=== PATIENT | male | born 1945 | race Caucasian/White ===

== ENCOUNTER 2020-11-02 11:28 | Emergency (ER) | payer MEDICARE, OTHER ==
[2020-11-02 11:41] VITALS: TEMP 98.5
--- NOTE | 2020-11-02 11:57 | ED ---
URI HPI - General Chief Complaint: Upper Respiratory Infection Stated Complaint: COVID+ Time Seen by Provider: 11/02/20 11:48 Source: patient, RN notes reviewed Mode of arrival: ambulatory Limitations: no limitations - History of Present Illness Initial Comments: Patient is a 75-year-old male that presents to emergency department complaining of testing positive for Covid on 10/29/2020. He notes he had symptoms one longer. He notes that he presents to emergency room to get to the bridge and around IV monoclonal antibody therapy. He denied any serious issues. He did have a cough on the exam. He denied any other issues. He was a well-appearing 75-year-old male. He denied chest pain headache nausea vomiting diarrhea constipation fever fatigue chills. - Related Data Allergies Allergy/AdvReac Type Severity Reaction Status Date / Time No Known Allergies Allergy Verified 11/02/20 11:35 Review of Systems ROS Statement: Those systems with pertinent positive or pertinent negative responses have been documented in the HPI. ROS Other: All systems not noted in ROS Statement are negative. Past Medical History Past Medical History: Hypertension Additional Past Medical History / Comment(s): arthritis, sinuses History of Any Multi-Drug Resistant Organisms: None Reported Past Surgical History: Appendectomy, Cholecystectomy, Joint Replacement Additional Past Surgical History / Comment(s): B knee hemorrhoid, sinus surrgery Past Psychological History: No Psychological Hx Reported Smoking Status: Never smoker Past Alcohol Use History: None Reported Past Drug Use History: None Reported General Exam Limitations: no limitations General appearance: alert, in no apparent distress Head exam: Present: atraumatic, normocephalic, normal inspection Eye exam: Present: normal appearance, PERRL, EOMI. Absent: scleral icterus, conjunctival injection, periorbital swelling ENT exam: Present: normal exam, mucous membranes moist Neck exam: Present: normal inspection Respiratory exam: Present: normal lung sounds bilaterally. Absent: respiratory distress, wheezes, rales, rhonchi, stridor Cardiovascular Exam: Present: regular rate, normal rhythm, normal heart sounds. Absent: systolic murmur, diastolic murmur, rubs, gallop, clicks GI/Abdominal exam: Present: soft, normal bowel sounds. Absent: distended, tenderness, guarding, rebound, rigid Extremities exam: Present: normal inspection, full ROM, normal capillary refill. Absent: tenderness, pedal edema, joint swelling, calf tenderness Neurological exam: Present: alert, oriented X3 Psychiatric exam: Present: normal affect, normal mood Skin exam: Present: warm, dry, intact, normal color. Absent: rash Course Vital Signs 11/02/20 11:37 Temperature 98.5 F Pulse Rate 92 Respiratory 18 Rate Blood Pressure 134/89 O2 Sat by Pulse 90 L Oximetry Medical Decision Making - Medical Decision Making 75-year-old male Covid positive times one week. Presents emergency room for her general on. Patient does meet criteria. Patient can discharge home after IV infusion. Case discussed with Dr. Nuñez, patient can discharge home in stable condition. - Radiology Data Radiology results: report reviewed, image reviewed Chest x-ray: Vague infiltrates or suggested within the periphery of both lung mcknight suspicious for developing pneumonia. Disposition Clinical Impression: COVID Disposition: HOME SELF-CARE Condition: Stable Instructions (If sedation given, give patient instructions): Coronavirus Disease 2019 (COVID-19) Additional Instructions: Please return to the Emergency Department if symptoms worsen or any other concerns. Follow-up with primary care 1-2 days. Continue to quarantine per CDC guidelines. Is patient prescribed a controlled substance at d/c from ED?: No Referrals: Kathie Guajardo MD [Primary Care Provider] - 1-2 days Time of Disposition: 12:50
[2020-11-02] MEDS ORDERED: CASIRIVIMAB/IMDEVIMAB (EUA) 1,200 MG in SODIUM CHLORIDE 0.9% 100 ML IVPB ONE (12:30)
--- NOTE | 2020-11-02 12:36 | XR ---
EXAMINATION TYPE: XR chest 2V DATE OF EXAM: 11/02/2020 COMPARISON: NONE HISTORY: Shortness of breath TECHNIQUE: Frontal and lateral views of the chest are obtained. FINDINGS: Scattered senescent parenchymal changes noted. Hyperinflation compatible with COPD. Vague infiltrates are suggested within the periphery of both lung mcknight suspicious for developing pn eumonia. Correlate clinically. Heart size is stable. Mediastinal structures are stable and grossly unremarkable. No evidence for hilar prominence. Degenerative changes dorsal spine. IMPRESSION: 1. Vague infiltrates are suggested within the periphery of both lung mcknight suspicious for developing pneumonia. Correlate clinically.
[2020-11-02] MEDS ORDERED: SODIUM CHLORIDE 0.9% 50 ML IVPB ONE (13:00)
[2020-11-02] MEDS ORDERED: METOCLOPRAMIDE 5 MG/ML 2 ML VIAL IVP STA (13:16)
[2020-11-02 13:28] VITALS: BP 138/86; RESP 16
[2020-11-02 14:18] VITALS: PULSE 74
== END 2020-11-02 14:17 | disposition home or self-care (01) ==
LOC: EC 11:28
DX: U07.1 COVID-19 (principal); I10 Essential (primary) hypertension
CPT/HCPCS: 71046; 99283; 96365; 96375; J2765; Q0243

== ENCOUNTER 2020-11-04 11:38 | Inpatient (IN) | payer MEDICARE, OTHER ==
[2020-11-04] MEDS ORDERED: SODIUM CHLORIDE 0.9% 500 ML 500 ML IV STA (11:57)
--- NOTE | 2020-11-04 11:57 | ED ---
General Adult HPI - General Chief complaint: Shortness of Breath Stated complaint: COVID Time Seen by Provider: 11/04/20 11:48 Source: patient, RN notes reviewed, old records reviewed Mode of arrival: ambulatory Limitations: no limitations - History of Present Illness Initial comments: This is a well-appearing 75-year-old male, alert and oriented 4, presents to the emergency room with worsening shortness of breath. He is not vaccinated against COVID-19. He was diagnosed with Covid on Thursday states that his symptoms started on Thursday last week. He states that he was given the monoclonal antibodies in the ER on Thursday. His primary care doctor put him on a Z-Bryn and prednisone which she finished. He states that he has been increasing shortness of breath with any type of exertion. His oxygen saturations have been in the 80s at home. He was using a concentrator that he borrowed from his neighbor to help with oxygenation with no relief. He denies any fevers. He does complain of nausea but no vomiting or diarrhea. -: days(s) (6) Associated Symptoms: nausea/vomiting, shortness of breath Treatments Prior to Arrival: other (Z-Bryn and prednisone this week) - Related Data Home Medications Medication Instructions Recorded Confirmed Albuterol Nebulized [Ventolin 2.5 mg INHALATION RT-QID PRN 11/04/20 11/04/20 Nebulized] Ascorbic Acid [Vitamin C] 500 mg PO BID 11/04/20 11/04/20 Calcium 200mg 200 mg PO BID 11/04/20 11/04/20 Cholecalciferol (Vitamin D3) 125 mcg PO BID 11/04/20 11/04/20 [Vitamin D3 (125 MCG = 5,000 IU)] Cyanocobalamin (Vitamin B-12) 2,500 mcg PO MO 11/04/20 11/04/20 [Vitamin B-12] Folic Acid 1 mg PO DAILY 11/04/20 11/04/20 HYDROcodone/APAP 10-325MG [[place] 1 tab PO DAILY PRN 11/04/20 11/04/20 10-325] Hydroxychloroquine Sulfate 200 mg PO BID 11/04/20 11/04/20 [Plaquenil] Ibuprofen [Motrin] 800 mg PO BID PRN 11/04/20 11/04/20 Loratadine-Pseudoeph 5-120 mg 1 tab PO Q12HR PRN 11/04/20 11/04/20 [Claritin-D 12 Hour] Magnesium Oxide [Crowe] 500 mg PO DAILY 11/04/20 11/04/20 Multivitamins, Thera [Multivitamin 1 tab PO DAILY 11/04/20 11/04/20 (formulary)] Telmisartan [Micardis] 40 mg PO HS 11/04/20 11/04/20 Turmeric 100mg 100 mg PO BID 11/04/20 11/04/20 Zinc 50 mg PO DAILY 11/04/20 11/04/20 ondansetron HCL [Zofran] 8 mg PO Q8HR PRN 11/04/20 11/04/20 Allergies Allergy/AdvReac Type Severity Reaction Status Date / Time No Known Allergies Allergy Verified 11/04/20 14:07 Review of Systems ROS Statement: Those systems with pertinent positive or pertinent negative responses have been documented in the HPI. ROS Other: All systems not noted in ROS Statement are negative. Past Medical History Past Medical History: Hypertension Additional Past Medical History / Comment(s): arthritis, sinuses History of Any Multi-Drug Resistant Organisms: None Reported Past Surgical History: Appendectomy, Cholecystectomy, Joint Replacement Additional Past Surgical History / Comment(s): B knee hemorrhoid, sinus surrgery Past Psychological History: No Psychological Hx Reported Smoking Status: Never smoker Past Alcohol Use History: None Reported Past Drug Use History: None Reported General Exam Limitations: no limitations General appearance: alert, in no apparent distress Head exam: Present: atraumatic, normocephalic, normal inspection Eye exam: Present: normal appearance, PERRL, EOMI. Absent: scleral icterus, conjunctival injection, periorbital swelling ENT exam: Present: normal exam, normal oropharynx, mucous membranes moist Neck exam: Present: normal inspection, full ROM. Absent: tenderness, meningismus, lymphadenopathy Respiratory exam: Present: rales (Bilateral bases) Cardiovascular Exam: Present: regular rate, normal rhythm, normal heart sounds. Absent: systolic murmur, diastolic murmur, rubs, gallop, clicks GI/Abdominal exam: Present: soft, normal bowel sounds. Absent: distended, tenderness, guarding, rebound, rigid Extremities exam: Present: normal inspection, full ROM, normal capillary refill. Absent: tenderness, pedal edema, joint swelling, calf tenderness Back exam: Absent: tenderness, CVA tenderness (R), CVA tenderness (L) Neurological exam: Present: alert, oriented X3 Psychiatric exam: Present: normal affect, normal mood Skin exam: Present: warm, dry, intact, normal color. Absent: rash, cyanosis, diaphoretic, petechiae, pallor Course Vital Signs 11/04/20 11/04/20 11/04/20 11:40 13:47 13:49 Temperature 97.9 F Pulse Rate 74 Respiratory 18 Rate Blood Pressure 142/85 O2 Sat by Pulse 98 81 L 93 L Oximetry 11/04/20 11/04/20 11/04/20 13:52 14:06 14:30 Temperature 98.8 F Pulse Rate 77 78 73 Respiratory 18 18 18 Rate Blood Pressure 138/80 135/82 O2 Sat by Pulse 86 L 89 L 91 L Oximetry Medical Decision Making - Medical Decision Making Mild interval worsening with scattered small ill-defined consolidative opacities in both mid and lower lung zones consistent with inflammatory process. His white blood cell count is 5.6. Troponin is negative at 0.012 with EKG showing normal sinus rhythm with no ST elevation. Patient remains hypoxic at 81% on room air. He was returned to the non- rebreather at 12 L to maintain sats above 95%. He will be admitted to the hospital continue him on oxygen therapy - Lab Data Result diagrams: 11/04/20 12:25 11/04/20 12:25 Lab Results 11/04/20 11/04/20 11/04/20 Range/Units 12:25 12:25 12:25 WBC 5.6 (3.8-10.6) k/uL RBC 4.78 (4.30-5.90) m/uL Hgb 15.4 (13.0-17.5) gm/dL Hct 44.2 (39.0-53.0) % MCV 92.4 (80.0-100.0) fL MCH 32.1 (25.0-35.0) pg MCHC 34.8 (31.0-37.0) g/dL RDW 13.1 (11.5-15.5) % Plt Count 236 (150-450) k/uL MPV 7.6 Neutrophils % 85 % Lymphocytes % 9 % Monocytes % 4 % Eosinophils % 1 % Basophils % 0 % Neutrophils # 4.8 (1.3-7.7) k/uL Lymphocytes # 0.5 L (1.0-4.8) k/uL Monocytes # 0.2 (0-1.0) k/uL Eosinophils # 0.0 (0-0.7) k/uL Basophils # 0.0 (0-0.2) k/uL PT 9.7 (9.0-12.0) sec INR 0.9 (<1.2) APTT 22.5 (22.0-30.0) sec Sodium 136 L (137-145) mmol/L Potassium 4.9 (3.5-5.1) mmol/L Chloride 99 (98-107) mmol/L Carbon Dioxide 29 (22-30) mmol/L Anion Gap 8 mmol/L BUN 20 (9-20) mg/dL Creatinine 0.58 L (0.66-1.25) mg/dL Est GFR (CKD-EPI)AfAm >90 (>60 ml/min/1.73 sqM) Est GFR (CKD-EPI)NonAf >90 (>60 ml/min/1.73 sqM) Glucose 124 H (74-99) mg/dL Plasma Lactic Acid Teofilo (0.7-2.0) mmol/L Calcium 8.8 (8.4-10.2) mg/dL Magnesium 2.1 (1.6-2.3) mg/dL Total Bilirubin 0.6 (0.2-1.3) mg/dL AST 40 (17-59) U/L ALT 21 (4-49) U/L Alkaline Phosphatase 68 (38-126) U/L Troponin I (0.000-0.034) ng/mL Total Protein 6.6 (6.3-8.2) g/dL Albumin 3.3 L (3.5-5.0) g/dL 11/04/20 11/04/20 Range/Units 12:25 12:25 WBC (3.8-10.6) k/uL RBC (4.30-5.90) m/uL Hgb (13.0-17.5) gm/dL Hct (39.0-53.0) % MCV (80.0-100.0) fL MCH (25.0-35.0) pg MCHC (31.0-37.0) g/dL RDW (11.5-15.5) % Plt Count (150-450) k/uL MPV Neutrophils % % Lymphocytes % % Monocytes % % Eosinophils % % Basophils % % Neutrophils # (1.3-7.7) k/uL Lymphocytes # (1.0-4.8) k/uL Monocytes # (0-1.0) k/uL Eosinophils # (0-0.7) k/uL Basophils # (0-0.2) k/uL PT (9.0-12.0) sec INR (<1.2) APTT (22.0-30.0) sec Sodium (137-145) mmol/L Potassium (3.5-5.1) mmol/L Chloride (98-107) mmol/L Carbon Dioxide (22-30) mmol/L Anion Gap mmol/L BUN (9-20) mg/dL Creatinine (0.66-1.25) mg/dL Est GFR (CKD-EPI)AfAm (>60 ml/min/1.73 sqM) Est GFR (CKD-EPI)NonAf (>60 ml/min/1.73 sqM) Glucose (74-99) mg/dL Plasma Lactic Acid Teofilo 1.3 (0.7-2.0) mmol/L Calcium (8.4-10.2) mg/dL Magnesium (1.6-2.3) mg/dL Total Bilirubin (0.2-1.3) mg/dL AST (17-59) U/L ALT (4-49) U/L Alkaline Phosphatase (38-126) U/L Troponin I <0.012 (0.000-0.034) ng/mL Total Protein (6.3-8.2) g/dL Albumin (3.5-5.0) g/dL Disposition Clinical Impression: COVID-19, Hypoxia Clinical Impression: (Ruled Out): COVID toes Disposition: ADMITTED IP TO THIS [facility] Condition: Fair Decision Date: 11/04/20 Decision Time: 13:54
[2020-11-04 12:31] LABS: Basophils % (A) 0 %; Eosinophils % (A) 1 %; HCT 44.2 % (39.0-53.0); HGB 15.4 gm/dL (13.0-17.5); Lymphocytes # (A) 0.5 k/uL (1.0-4.8); Lymphocytes % (A) 9 %; MCH 32.1 pg (25.0-35.0); MCHC 34.8 g/dL (31.0-37.0); MCV 92.4 fL (80.0-100.0); Mean Platelet Volume 7.6; Monocytes # (A) 0.2 k/uL (0-1.0); Monocytes % (A) 4 %; Neutrophils # (A) 4.8 k/uL (1.3-7.7); Neutrophils % (A) 85 %; Platelet Count 236 k/uL (150-450); RBC 4.78 m/uL (4.30-5.90); RDW 13.1 % (11.5-15.5); WBC 5.6 k/uL (3.8-10.6)
[2020-11-04 12:41] LABS: INR 0.9 (<1.2); Partial Thromboplastin Time 22.5 sec (22.0-30.0); Prothrombin Time 9.7 sec (9.0-12.0)
[2020-11-04 12:43] LABS: ALT 21 U/L (4-49); AST 40 U/L (17-59); African American GFR (CKD) >90 (>60 ml/min/1.73 sqM); Albumin 3.3 g/dL (3.5-5.0); Alkaline Phosphatase 68 U/L (38-126); Anion Gap 8 mmol/L; Blood Urea Nitrogen 20 mg/dL (9-20); Calcium 8.8 mg/dL (8.4-10.2); Carbon Dioxide 29 mmol/L (22-30); Chloride 99 mmol/L (98-107); Glucose 124 mg/dL (74-99); Magnesium 2.1 mg/dL (1.6-2.3); Non-African American GFR(CKD) >90 (>60 ml/min/1.73 sqM); Potassium 4.9 mmol/L (3.5-5.1); Sodium 136 mmol/L (137-145); Total Bilirubin 0.6 mg/dL (0.2-1.3); Total Protein 6.6 g/dL (6.3-8.2)
--- NOTE | 2020-11-04 13:15 | XR ---
EXAMINATION TYPE: XR chest 2V DATE OF EXAM: 11/04/2020 COMPARISON: 11/02/2020 HISTORY: Covid TECHNIQUE: Frontal and lateral views of the chest are obtained. FINDINGS: There are scattered small ill-defined partially consolidative opacities in the peripheral aspects of both mid and lower lung zones suspicious for an acute inflammatory process. There has been mild interval progression since the prior study. There is no pneumothorax or pleural effusion. The heart and pulmonary vasculature are normal. The osseous structures are intact IMPRESSION: Mild interval worsening in the scattered multifocal partial airspace opacities consisten t with acute parenchymal disease
[2020-11-04] MEDS ORDERED: METOCLOPRAMIDE 5 MG/ML 2 ML VIAL IVP STA (13:46)
[2020-11-04] MEDS ORDERED: DEXAMETHASONE SOD PHOSPHATE 10 MG/ML 1 ML VIAL IV STA (13:52)
[2020-11-04] MEDS ORDERED: NALOXONE 0.4 MG/ML 1 ML VIAL IV PRN ×2 (14:02→14:35)
[2020-11-04] MEDS ORDERED: ACETAMINOPHEN TAB 325 MG TAB PO PRN (14:02)
[2020-11-04] MEDS ORDERED: IBUPROFEN 400 MG TAB PO PRN (14:02)
[2020-11-04] MEDS ORDERED: oxyCODONE-APAP 5-325MG 1 EACH TAB PO PRN (14:35)
--- NOTE | 2020-11-04 14:35 | P.HPIM ---
History of Present Illness H&P Date: 11/04/20 Chief Complaint: covid 75 year old man with history of RA on HCQ presented with dyspnea. Pt started having symptoms on 10/29 and was dx with Covid on 10/31, then received monoclonal antibody on 11/02. However, patient continued to have symptoms at home, with increasing dyspnea on exertion. He borrowed his friend's oxygen concentrator and attempt to keep his oxygen saturation up, however he desaturated to the low 80s at home prompting his visit to the emergency room for further evaluation. Patient denies nausea, vomiting, abdominal pain, dysuria, dyschezia, numbness/we akness. In the emergency room, patient is on 6 L nasal cannula and saturating 89%. CBC and chemistries and LFTs were reviewed and unremarkable. Chest x-ray shows interval worsening of the scattered multifocal partial airspace opacities. EKG shows normal sinus rhythm. Review of Systems All Systems reviewed and pertinent positives and negatives noted in HPI, all other symptoms are negative Past Medical History Past Medical History: Hypertension Additional Past Medical History / Comment(s): arthritis, sinuses History of Any Multi-Drug Resistant Organisms: None Reported Past Surgical History: Appendectomy, Cholecystectomy, Joint Replacement Additional Past Surgical History / Comment(s): B knee hemorrhoid, sinus surrgery Past Psychological History: No Psychological Hx Reported Smoking Status: Never smoker Past Alcohol Use History: None Reported Past Drug Use History: None Reported Medications and Allergies Home Medications Medication Instructions Recorded Confirmed Type Albuterol Nebulized [Ventolin 2.5 mg INHALATION RT-QID PRN 11/04/20 11/04/20 History Nebulized] Ascorbic Acid [Vitamin C] 500 mg PO BID 11/04/20 11/04/20 History Calcium 200mg 200 mg PO BID 11/04/20 11/04/20 History Cholecalciferol (Vitamin D3) 125 mcg PO BID 11/04/20 11/04/20 History [Vitamin D3 (125 MCG = 5,000 IU)] Cyanocobalamin (Vitamin B-12) 2,500 mcg PO MO 11/04/20 11/04/20 History [Vitamin B-12] HYDROcodone/APAP 10-325MG [[place] 1 tab PO DAILY PRN 11/04/20 11/04/20 History 10-325] Hydroxychloroquine Sulfate 200 mg PO BID 11/04/20 11/04/20 History [Plaquenil] Ibuprofen [Motrin] 800 mg PO BID PRN 11/04/20 11/04/20 History Loratadine-Pseudoeph 5-120 mg 1 tab PO Q12HR PRN 11/04/20 11/04/20 History [Claritin-D 12 Hour] Magnesium Oxide [Crowe] 500 mg PO DAILY 11/04/20 11/04/20 History Multivitamins, Thera [Multivitamin 1 tab PO DAILY 11/04/20 11/04/20 History (formulary)] RX: Folic Acid 1 mg PO DAILY 11/04/20 11/04/20 History RX: Zinc 50 mg PO DAILY 11/04/20 11/04/20 History Telmisartan [Micardis] 40 mg PO HS 11/04/20 11/04/20 History Turmeric 100mg 100 mg PO BID 11/04/20 11/04/20 History ondansetron HCL [Zofran] 8 mg PO Q8HR PRN 11/04/20 11/04/20 History Allergies Allergy/AdvReac Type Severity Reaction Status Date / Time No Known Allergies Allergy Verified 11/04/20 14:07 Physical Exam Osteopathic Statement: *. No significant issues noted on an osteopathic structural exam other than those noted in the History and Physical/Consult. Vitals: Vital Signs Temp Pulse Resp BP Pulse Ox 11/04/20 14:06 78 18 89 L 11/04/20 13:52 98.8 F 77 18 138/80 86 L 11/04/20 13:49 93 L 11/04/20 13:47 81 L 11/04/20 11:40 97.9 F 74 18 142/85 98 Intake and Output 11/03/20 11/04/20 11/04/20 22:59 06:59 14:59 Other: Weight 104.326 kg Gen: awake, alert HEENT: normocephalic, atraumatic, good hearing acuity, moist mucous membranes Resp: good air exchange, breathing comfortably with no accessory muscle use CVS: good distal perfusion x 4, GI: soft, NTTP, ND : no SPT, no CVAT, varghese catheter not present MSK: no pitting edema, no clubbing Neuro: non-focal, moving all extremities Psych: cooperative, euthymic mood Results CBC & Chem 7: 11/04/20 12:25 11/04/20 12:25 Labs: Abnormal Lab Results - Last 24 Hours (Table) 11/04/20 11/04/20 Range/Units 12:25 12:25 Lymphocytes # 0.5 L (1.0-4.8) k/uL Sodium 136 L (137-145) mmol/L Creatinine 0.58 L (0.66-1.25) mg/dL Glucose 124 H (74-99) mg/dL Albumin 3.3 L (3.5-5.0) g/dL Assessment and Plan Assessment: Acute hypoxemic respiratory failure ARDS secondary to Covid 19 -Admit to inpatient, telemetry -Pulmonary consult -Vitamin C/D, zinc, famotidine -Dexamethasone 6 mg IV daily -Inside the window for Remdesivir, however, patient refuses -Not a candidate for IL-6 therapy given recent monoclonal antibody injection -Oxygen when necessary Rheumatoid arthritis -Hold home hydroxy chloroquine Patient is a full code DVT prophylaxis with enoxaparin daily
[2020-11-04] MEDS: ALBUTEROL HFA INHALER INHALATION PRN ×2 (15:07→21:20)
[2020-11-04 16:16] LABS: C Reactive Protein 8.5 mg/dL (<1.0)
[2020-11-04] MEDS: CALCIUM CARB-VIT D 500 MG-5 MCG TAB PO SCH (21:16)
[2020-11-04] MEDS: LOSARTAN 50 MG TAB PO SCH (21:16)
[2020-11-04] MEDS: CHOLECALCIFEROL 25 MCG (1000 IU) TABLET PO SCH (21:16)
[2020-11-04] MEDS: ASCORBIC ACID 500 MG TAB PO SCH (21:17)
[2020-11-04] MEDS: FAMOTIDINE 20 MG TAB PO SCH (21:17)
[2020-11-04] MEDS: MELATONIN 5 MG TABLET PO SCH (21:59)
[2020-11-05] MEDS: CHOLECALCIFEROL 25 MCG (1000 IU) TABLET PO SCH ×2 (07:51→21:14)
[2020-11-05] MEDS: DEXAMETHASONE SOD PHOSPHATE 10 MG/ML 1 ML VIAL IV SCH (07:51)
[2020-11-05] MEDS: ENOXAPARIN 40 MG/0.4 ML SYRINGE SQ SCH (07:51)
[2020-11-05] MEDS: ASCORBIC ACID 500 MG TAB PO SCH ×2 (07:52→21:15)
[2020-11-05] MEDS: FOLIC ACID 1 MG TAB PO SCH (07:52)
[2020-11-05] MEDS: FAMOTIDINE 20 MG TAB PO SCH ×2 (07:52→21:14)
[2020-11-05] MEDS: ZINC SULFATE 220 MG CAP PO SCH (07:52)
[2020-11-05] MEDS: CALCIUM CARB-VIT D 500 MG-5 MCG TAB PO SCH ×2 (07:52→21:15)
[2020-11-05] MEDS: ALBUTEROL HFA INHALER INHALATION PRN ×2 (08:59→12:20)
[2020-11-05 11:43] LABS: Basophils # (A) 0.01 X 10*3/uL (0.00-0.10); Basophils % (A) 0.2 %; Eosinophils # (A) 0 X 10*3/uL (0.04-0.35); Eosinophils % (A) 0 %; HCT 43.9 % (39.6-50.0); Lymphocytes # (A) 0.49 X 10*3/uL (0.90-5.00); Lymphocytes % (A) 9.1 %; MCH 31.7 pg (27.0-32.0); MCHC 34.2 g/dL (32.0-37.0); MCV 92.8 fL (80.0-97.0); Mean Platelet Volume 9.2 fL (9.5-12.2); Monocytes # (A) 0.34 X 10*3/uL (0.20-1.00); Monocytes % (A) 6.3 %; Neutrophils # (A) 4.54 X 10*3/uL (1.80-7.70); Neutrophils % (A) 83.8 %; Platelet Count 254 X 10*3/uL (140-440); RBC 4.73 X 10*6/uL (4.40-5.60); RDW 12.4 % (11.5-14.5); WBC 5.41 X 10*3/uL (4.50-10.00)
[2020-11-05 11:49] LABS: Ferritin 731.7 ng/mL (22.0-322.0)
[2020-11-05 11:50] LABS: African American GFR (CKD) 108.5 (60.0-200.0); Albumin 3.6 g/dL (3.80-4.90); Albumin/Globulin Ratio 1.33 (1.60-3.17); Anion Gap 13.7 mmol/L (4.00-12.00); BUN/Creat Ratio 25.71 Ratio (12.00-20.00); Calcium 8.9 mg/dL (8.7-10.3); Carbon Dioxide 23.3 mmol/L (21.6-31.8); Globulin 2.7 g/dL (1.6-3.3); Non-African American GFR(CKD) 93.6 (60.0-200.0); Potassium 4.9 mmol/L (3.5-5.5); Total Bilirubin 0.6 mg/dL (0.2-1.2); Total Protein 6.3 g/dL (6.2-8.2)
--- NOTE | 2020-11-05 13:22 | P.PN ---
Subjective Progress Note Date: 11/05/20 No acute events. Still with cough, dyspnea on exertion. 6L NC oxygen requirement. Objective - Vital Signs Vital signs: Vital Signs Temp 97.7 F 11/05/20 10:00 Pulse 73 11/05/20 10:00 Resp 18 11/05/20 10:00 BP 126/70 11/05/20 10:00 Pulse Ox 94 L 11/05/20 10:00 Intake & Output 11/04/20 11/05/20 11/05/20 18:59 06:59 18:59 Intake Total 240 Output Total 600 Balance -600 240 Weight 104.326 kg 104.326 kg Intake: Oral 240 Output: Urine 600 Other: Voiding Method Toilet Toilet Urinal Urinal # Voids 3 # Bowel Movements 0 - Exam Gen: awake, alert HEENT: normocephalic, atraumatic, good hearing acuity, moist mucous membranes Resp: good air exchange, breathing comfortably with no accessory muscle use CVS: good distal perfusion x 4, GI: soft, NTTP, ND : no SPT, no CVAT, varghese catheter not present MSK: no pitting edema, no clubbing Neuro: non-focal, moving all extremities Psych: cooperative, euthymic mood - Labs CBC & Chem 7: 11/05/20 07:18 11/05/20 07:18 Labs: Abnormal Lab Results - Last 24 Hours (Table) 11/04/20 11/04/20 11/05/20 Range/Units 15:16 15:16 07:18 MPV 9.2 L (9.5-12.2) fL Lymphocytes # 0.49 L (0.90-5.00) X 10*3/uL Eosinophils # 0 L (0.04-0.35) X 10*3/uL D-Dimer 0.77 H (<0.60) mg/L FEU Anion Gap (4.00-12.00) mmol/L BUN/Creatinine Ratio (12.00-20.00) Ratio Glucose (70-110) mg/dL Ferritin 690.0 H (22.0-322.0) ng/mL Lactate Dehydrogenase (120-246) U/L C-Reactive Protein 8.5 H (<1.0) mg/dL Albumin (3.80-4.90) g/dL Albumin/Globulin Ratio (1.60-3.17) g/dL 11/05/20 11/05/20 Range/Units 07:18 07:18 MPV (9.5-12.2) fL Lymphocytes # (0.90-5.00) X 10*3/uL Eosinophils # (0.04-0.35) X 10*3/uL D-Dimer 1.01 H (<0.60) mg/L FEU Anion Gap 13.70 H (4.00-12.00) mmol/L BUN/Creatinine Ratio 25.71 H (12.00-20.00) Ratio Glucose 183 H (70-110) mg/dL Ferritin 731.7 H (22.0-322.0) ng/mL Lactate Dehydrogenase 374 H (120-246) U/L C-Reactive Protein (<1.0) mg/dL Albumin 3.60 L (3.80-4.90) g/dL Albumin/Globulin Ratio 1.33 L (1.60-3.17) g/dL Assessment and Plan Assessment: Acute hypoxemic respiratory failure ARDS secondary to Covid 19 -Admit to inpatient, telemetry -Pulmonary consult -Vitamin C/D, zinc, famotidine -Dexamethasone 6 mg IV daily -Inside the window for Remdesivir, however, patient refuses -Not a candidate for IL-6 therapy given recent monoclonal antibody injection -Oxygen when necessary Rheumatoid arthritis -Hold home hydroxy chloroquine Patient is a full code DVT prophylaxis with enoxaparin daily
--- NOTE | 2020-11-05 13:51 | P.CNPUL ---
History of Present Illness Consult date: 11/05/20 Reason for consult: pneumonia History of present illness: Suite a 75-year-old male patient who presented to the burst department because of worsening shortness of breath. The patient started having symptoms related to COVID-19 on 10/29/2020. The patient was ultimately diagnosed having COVID-19 infection on 11/01/2019 100+ he came into the emergency department and the patient received multiple antibiotics in the ED on 11/02/2020. His symptoms progressed and the patient became progressively more short of breath. He borrowed his friends oxygen concentrator. He was having issues with desaturation with pulse ox was dropping as low as in the low 80s. At that point, he came back to the hospital. In the ED, he was placed on 6 L of oxygen by nasal cannula initially. Chest x-ray showed diffuse bilateral pulmonary infiltrates multifocal patchy infiltrates consistent with COVID-19 related pneumonia. The patient had no fever. The patient was started on vitamin C, vitamin D, zinc and Pepcid. The patient was started on Decadron 6 mg IV every 24 hours. He was considered to be inside the window for Remdesivir and he was giving the medication.. This morning the patient is on oxygen at 6 L per minute nasal cannula. His d-dimer currently is at 1.01. His white cell count is at 5.4 with a hemoglobin of 15. He has lymphopenia. His LDH level is 374, CRP level is at 8.5, his ferritin level is at 731, lactic acid level was at 1.3, LFTs were essentially within normal, I's were normal, coagulation profile is within normal limits. He is doing well. No altered mentation. No nausea. No vomiting. No diarrhea. No skin rash. No other significant events otherwise for now. He is known to have rheumatoid arthritis and the patient takes Plaquenil 200 mg by mouth twice a day at home. Review of Systems Constitutional: Reports fatigue, Reports weakness Eyes: denies as per HPI, denies blurred vision, denies bulging eye, denies decreased vision, denies diplopia, denies discharge, denies dry eye, denies irritation, denies itching, denies pain, denies photophobia, denies loss of peripheral vision, denies loss of vision, denies tunnel vision/blind spots Ears: deny: decreased hearing, ear discharge, earache, tinnitus Ears, nose, mouth and throat: Reports as per HPI Cardiovascular: Reports as per HPI, Reports decreased exercise tolerance, Reports dyspnea on exertion Respiratory: Reports dyspnea Gastrointestinal: Reports as per HPI Genitourinary: Reports as per HPI Musculoskeletal: Reports as per HPI Musculoskeletal: absent: ankle pain, ankle stiffness, ankle swelling Integumentary: Reports as per HPI Neurological: Reports as per HPI Psychiatric: Reports as per HPI Endocrine: Reports as per HPI Hematologic/Lymphatic: Reports as per HPI Allergic/Immunologic: Reports as per HPI Past Medical History Past Medical History: Hypertension Additional Past Medical History / Comment(s): rheumatoid arthritis, sinuses History of Any Multi-Drug Resistant Organisms: None Reported Past Surgical History: Appendectomy, Cholecystectomy, Joint Replacement Additional Past Surgical History / Comment(s): Praveen knee, hemorrhoid, sinus surrgery Past Anesthesia/Blood Transfusion Reactions: No Reported Reaction Past Psychological History: No Psychological Hx Reported Smoking Status: Never smoker Past Alcohol Use History: None Reported Past Drug Use History: None Reported - Past Family History Mother Family Medical History: Congestive Heart Failure (CHF) Father Family Medical History: Congestive Heart Failure (CHF) Medications and Allergies Home Medications Medication Instructions Recorded Confirmed Type Albuterol Nebulized [Ventolin 2.5 mg INHALATION RT-QID PRN 11/04/20 11/04/20 History Nebulized] Ascorbic Acid [Vitamin C] 500 mg PO BID 11/04/20 11/04/20 History Calcium 200mg 200 mg PO BID 11/04/20 11/04/20 History Cholecalciferol (Vitamin D3) 125 mcg PO BID 11/04/20 11/04/20 History [Vitamin D3 (125 MCG = 5,000 IU)] Cyanocobalamin (Vitamin B-12) 2,500 mcg PO MO 11/04/20 11/04/20 History [Vitamin B-12] Folic Acid 1 mg PO DAILY 11/04/20 11/04/20 History HYDROcodone/APAP 10-325MG [[place] 1 tab PO DAILY PRN 11/04/20 11/04/20 History 10-325] Hydroxychloroquine Sulfate 200 mg PO BID 11/04/20 11/04/20 History [Plaquenil] Ibuprofen [Motrin] 800 mg PO BID PRN 11/04/20 11/04/20 History Loratadine-Pseudoeph 5-120 mg 1 tab PO Q12HR PRN 11/04/20 11/04/20 History [Claritin-D 12 Hour] Magnesium Oxide [Crowe] 500 mg PO DAILY 11/04/20 11/04/20 History Multivitamins, Thera [Multivitamin 1 tab PO DAILY 11/04/20 11/04/20 History (formulary)] Telmisartan [Micardis] 40 mg PO HS 11/04/20 11/04/20 History Turmeric 100mg 100 mg PO BID 11/04/20 11/04/20 History Zinc 50 mg PO DAILY 11/04/20 11/04/20 History ondansetron HCL [Zofran] 8 mg PO Q8HR PRN 11/04/20 11/04/20 History Allergies Allergy/AdvReac Type Severity Reaction Status Date / Time No Known Allergies Allergy Verified 11/04/20 14:07 Physical Exam Vitals: Vital Signs Temp Pulse Pulse Resp BP BP Pulse Ox 11/05/20 10:00 97.7 F 73 18 126/70 94 L 11/05/20 05:23 97.7 F 76 20 133/77 88 L 11/05/20 01:57 98.1 F 76 120/74 95 11/04/20 21:58 98.2 F 88 155/80 92 L 11/04/20 19:05 98.2 F 90 18 143/80 96 11/04/20 17:12 82 18 98 11/04/20 14:30 73 18 135/82 91 L 11/04/20 14:06 78 18 89 L 11/04/20 13:52 98.8 F 77 18 138/80 86 L 11/04/20 13:49 93 L 11/04/20 13:47 81 L Intake and Output 11/04/20 11/05/20 11/05/20 22:59 06:59 14:59 Intake Total 240 Output Total 600 Balance -600 240 Intake: Oral 240 Output: Urine 600 Other: Voiding Method Toilet Toilet Urinal Urinal # Voids 3 # Bowel Movements 0 Weight 104.326 kg Gen. appearance the patient is calm and comfortable lying acute distress Head exam was generally normal. There was no scleral icterus or corneal arcus. Mucous membranes were moist. Neck was supple and without jugular venous distension, thyromegaly, or carotid bruits. Carotids were easily palpable bilaterally. There was no adenopathy. Lungs sounds are diminished in the patient's tachycardia lung bases bilaterally Cardiac exam revealed the PMI to be normally situated and sized. The rhythm was regular and no extrasystoles were noted during several minutes of auscultation. The first and second heart sounds were normal and physiologic splitting of the second heart sound was noted. There were no murmurs, rubs, clicks, or gallops. Abdominal exam revealed normal bowel sounds. The abdomen was soft, non-tender, and without masses, organomegaly, or appreciable enlargement of the abdominal aorta. Examination of the extremities revealed easily palpable radial, femoral and pedal pulses. There was no cyanosis, clubbing or edema. Examination of the skin revealed no evidence of significant rashes, suspicious appearing nevi or other concerning lesions. Neurologically, the patient is awake and alert and the patient does not have any focal neurological deficit. Cranial nerves are essentially intact. Results - Laboratory Findings CBC and BMP: 11/05/20 07:18 11/05/20 07:18 PT/INR, D-dimer PT 9.7 sec (9.0-12.0) 11/04/20 12:25 INR 0.9 (<1.2) 11/04/20 12:25 D-Dimer 1.01 mg/L FEU (<0.60) H 11/05/20 07:18 Abnormal lab findings: Abnormal Labs 11/04/20 11/04/20 11/04/20 12:25 12:25 15:16 MPV Lymphocytes # 0.5 L Eosinophils # D-Dimer 0.77 H Sodium 136 L Anion Gap Creatinine 0.58 L BUN/Creatinine Ratio Glucose 124 H Ferritin Lactate Dehydrogenase C-Reactive Protein Albumin 3.3 L Albumin/Globulin Ratio 11/04/20 11/05/20 11/05/20 15:16 07:18 07:18 MPV 9.2 L Lymphocytes # 0.49 L Eosinophils # 0 L D-Dimer Sodium Anion Gap 13.70 H Creatinine BUN/Creatinine Ratio 25.71 H Glucose 183 H Ferritin 690.0 H 731.7 H Lactate Dehydrogenase 374 H C-Reactive Protein 8.5 H Albumin 3.60 L Albumin/Globulin Ratio 1.33 L 11/05/20 07:18 MPV Lymphocytes # Eosinophils # D-Dimer 1.01 H Sodium Anion Gap Creatinine BUN/Creatinine Ratio Glucose Ferritin Lactate Dehydrogenase C-Reactive Protein Albumin Albumin/Globulin Ratio - Diagnostic Findings Chest x-ray: image reviewed Assessment and Plan Plan: 1 acute COVID-19 related pneumonia, the patient was diagnosed on 10/31/2020. The patient received monoclonal antibodies on 11/03/2019 months. Patient's sy mptoms involved in 10/29/2020. Patient is currently on Decadron and the patient is also on remdesivir 2 acute hypoxic respiratory failure secondary COVID-19 related pneumonia. 3 mild elevation of inflammatory markers secondary to above 4 rheumatoid arthritis maintained on Plaquenil outpatient basis 5 osteoarthritis Plan Agree on the current plan Titrate FiO2 to maintain a saturation above 90% Continue the combination of Decadron and he qualifies for Remdesivir (denied/redused the drug) May continue Plaquenil Continue Lovenox We'll continue to follow
[2020-11-05] MEDS: LOSARTAN 50 MG TAB PO SCH (21:15)
[2020-11-05] MEDS: MELATONIN 5 MG TABLET PO SCH (21:15)
[2020-11-06 07:58] LABS: C Reactive Protein 4.2 mg/dL (<1.0)
[2020-11-06] MEDS: ZINC SULFATE 220 MG CAP PO SCH (07:58)
[2020-11-06] MEDS: FAMOTIDINE 20 MG TAB PO SCH ×2 (07:59→21:20)
[2020-11-06] MEDS: DEXAMETHASONE SOD PHOSPHATE 10 MG/ML 1 ML VIAL IV SCH (07:59)
[2020-11-06] MEDS: ENOXAPARIN 40 MG/0.4 ML SYRINGE SQ SCH (07:59)
[2020-11-06] MEDS: FOLIC ACID 1 MG TAB PO SCH (07:59)
[2020-11-06] MEDS: CALCIUM CARB-VIT D 500 MG-5 MCG TAB PO SCH ×2 (07:59→21:21)
[2020-11-06] MEDS: ASCORBIC ACID 500 MG TAB PO SCH ×2 (07:59→21:21)
[2020-11-06] MEDS: CHOLECALCIFEROL 25 MCG (1000 IU) TABLET PO SCH ×2 (07:59→21:20)
--- NOTE | 2020-11-06 08:15 | XR ---
EXAMINATION TYPE: XR chest 1V portable DATE OF EXAM: 11/06/2020 Comparison: 11/04/2020 Clinical History: 75-year-old male CoVID pneumonia Findings: Heart normal size. Aorta within normal limits. Patchy bilateral airspace opacity shows slight interva l increase in density. No pleural effusion. Degenerative change right shoulder. Impression: Bilateral peripheral COVID pneumonia shows slight interval worsening.
[2020-11-06] MEDS: ALBUTEROL HFA INHALER INHALATION PRN ×2 (09:00→12:42)
--- NOTE | 2020-11-06 13:35 | P.PN ---
Subjective Progress Note Date: 11/06/20 No changes to oxygenation status. Inflammatory markers mildly worse today. CXR appears mildly worse today. Continue to monitor. Objective - Vital Signs Vital signs: Vital Signs Temp 97.9 F 11/06/20 10:00 Pulse 95 11/06/20 10:00 Resp 20 11/06/20 10:00 BP 123/70 11/06/20 10:00 Pulse Ox 93 L 11/06/20 10:00 Intake & Output 11/05/20 11/06/20 11/06/20 18:59 06:59 18:59 Intake Total 1490 480 Balance 1490 480 Intake: Oral 1490 480 Other: Voiding Method Toilet Urinal # Voids 3 4 2 # Bowel Movements 0 - Exam Gen: awake, alert HEENT: normocephalic, atraumatic, good hearing acuity, moist mucous membranes Resp: good air exchange, breathing comfortably with no accessory muscle use CVS: good distal perfusion x 4, GI: soft, NTTP, ND : no SPT, no CVAT, varghese catheter not present MSK: no pitting edema, no clubbing Neuro: non-focal, moving all extremities Psych: cooperative, euthymic mood - Labs CBC & Chem 7: 11/05/20 07:18 11/05/20 07:18 Labs: Abnormal Lab Results - Last 24 Hours (Table) 11/05/20 11/06/20 11/06/20 Range/Units 07:18 07:03 07:03 D-Dimer 1.39 H (<0.60) mg/L FEU Lactate Dehydrogenase 920 H (313-618) U/L C-Reactive Protein 10.0 H 4.2 H (0.0-0.8) mg/dL Assessment and Plan Assessment: Acute hypoxemic respiratory failure ARDS secondary to Covid 19 -Admit to inpatient, telemetry -Pulmonary consult -Vitamin C/D, zinc, famotidine -Dexamethasone 6 mg IV daily -Inside the window for Remdesivir, however, patient refuses -Not a candidate for IL-6 therapy given recent monoclonal antibody injection -Oxygen when necessary Rheumatoid arthritis -Hold home hydroxy chloroquine Patient is a full code DVT prophylaxis with enoxaparin daily
--- NOTE | 2020-11-06 15:31 | P.PN ---
Subjective Progress Note Date: 11/06/20 75-year-old male patient who presented to the burst department because of worsening shortness of breath. The patient started having symptoms related to COVID-19 on 10/29/2020. The patient was ultimately diagnosed having COVID-19 infection on 11/01/2019 100+ he came into the emergency department and the patient received multiple antibiotics in the ED on 11/02/2020. His symptoms progressed and the patient became progressively more short of breath. He borrowed his friends oxygen concentrator. He was having issues with desaturation with pulse ox was dropping as low as in the low 80s. At that poi nt, he came back to the hospital. In the ED, he was placed on 6 L of oxygen by nasal cannula initially. Chest x-ray showed diffuse bilateral pulmonary infiltrates multifocal patchy infiltrates consistent with COVID-19 related pneumonia. The patient had no fever. The patient was started on vitamin C, vitamin D, zinc and Pepcid. The patient was started on Decadron 6 mg IV every 24 hours. He was considered to be inside the window for Remdesivir and he was giving the medication.. This morning the patient is on oxygen at 6 L per minute nasal cannula. His d-dimer currently is at 1.01. His white cell count is at 5.4 with a hemoglobin of 15. He has lymphopenia. His LDH level is 374, CRP l evel is at 8.5, his ferritin level is at 731, lactic acid level was at 1.3, LFTs were essentially within normal, I's were normal, coagulation profile is within normal limits. He is doing well. No altered mentation. No nausea. No vomiting. No diarrhea. No skin rash. No other significant events otherwise for now. He is known to have rheumatoid arthritis and the patient takes Plaquenil 200 mg by mouth twice a day at home. 10/29/2020 the patient on 8 L of oxygen by nasal cannula. A follow-up chest x- ray was done and it shows more dense infiltration of the lungs bilaterally more so in the peripheries. The patient 80s of Nasal Cannula. She Was on 6 L. His Condition Is Otherwise Stable. His LDH Level Is up to 920. CRP Level Is up to 4.2. He Remains on Steroids and the Patient Is Currently on Decadron 6 Mg IV Every 24 Hours. He Also Takes Plaquenil for Rheumatoid Arthritis in the Seventh Maintained and Continued. He Is on Lovenox 40 Mg Subcu Every 24 Hours and the D-Dimer from Today Is at 1.39. No Other Complaints Otherwise for Now. No Nausea. No Vomiting. No Emesis. Objective - Vital Signs Vital signs: Vital Signs Temp 97.8 F 11/06/20 14:00 Pulse 91 11/06/20 14:00 Resp 20 11/06/20 14:00 BP 115/70 11/06/20 14:00 Pulse Ox 93 L 11/06/20 14:00 Intake & Output 11/05/20 11/06/20 11/06/20 18:59 06:59 18:59 Intake Total 1490 480 Balance 1490 480 Intake: Oral 1490 480 Other: Voiding Method Toilet Urinal # Voids 3 4 2 # Bowel Movements 0 - Exam Gen. appearance the patient is calm and comfortable lying acute distress Head exam was generally normal. There was no scleral icterus or corneal arcus. Mucous membranes were moist. Neck was supple and without jugular venous distension, thyromegaly, or carotid bruits. Carotids were easily palpable bilaterally. There was no adenopathy. Lungs sounds are diminished in the patient's tachycardia lung bases bilaterally Cardiac exam revealed the PMI to be normally situated and sized. The rhythm was regular and no extrasystoles were noted during several minutes of auscultation. The first and second heart sounds were normal and physiologic splitting of the second heart sound was noted. There were no murmurs, rubs, clicks, or gallops. Abdominal exam revealed normal bowel sounds. The abdomen was soft, non-tender, and without masses, organomegaly, or appreciable enlargement of the abdominal aorta. Examination of the extremities revealed easily palpable radial, femoral and pedal pulses. There was no cyanosis, clubbing or edema. Examination of the skin revealed no evidence of significant rashes, suspicious appearing nevi or other concerning lesions. Neurologically, the patient is awake and alert and the patient does not have any focal neurological deficit. Cranial nerves are essentially intact. - Labs CBC & Chem 7: 11/05/20 07:18 11/05/20 07:18 Labs: Abnormal Lab Results - Last 24 Hours (Table) 11/06/20 11/06/20 Range/Units 07:03 07:03 D-Dimer 1.39 H (<0.60) mg/L FEU Lactate Dehydrogenase 920 H (313-618) U/L C-Reactive Protein 4.2 H (<1.0) mg/dL Assessment and Plan Plan: 1 acute COVID-19 related pneumonia, the patient was diagnosed on 10/31/2020. The patient received monoclonal antibodies on 11/02/2020. Patient's symptoms involved in 10/29/2020. Patient is currently on Decadron and the patient refused remdesivir 2 acute hypoxic respiratory failure secondary COVID-19 related pneumonia. Clinically, the patient is the same. Nevertheless, his LDH is on the rise. His chest x-ray shows worsening of the bilateral pulmonary infiltrates. He is up to 80s of oxygen by nasal cannula. 3 mild elevation of inflammatory markers secondary to above 4 rheumatoid arthritis maintained on Plaquenil outpatient basis 5 osteoarthritis Plan Monitor oxygenation and titrate oxygen flow to maintain saturation above 90% Titrate FiO2 to maintain a saturation above 90% Continue the combination of Decadron and he qualifies for Remdesivir (denied/refused the drug) May continue Plaquenil, currently off Continue Lovenox We'll continue to follow
[2020-11-06] MEDS: LOSARTAN 50 MG TAB PO SCH (21:20)
[2020-11-06] MEDS: MELATONIN 5 MG TABLET PO SCH (21:20)
[2020-11-07] MEDS: DEXAMETHASONE SOD PHOSPHATE 10 MG/ML 1 ML VIAL IV SCH (07:50)
[2020-11-07] MEDS: CHOLECALCIFEROL 25 MCG (1000 IU) TABLET PO SCH ×2 (07:50→20:29)
[2020-11-07] MEDS: ENOXAPARIN 40 MG/0.4 ML SYRINGE SQ SCH (07:50)
[2020-11-07] MEDS: FOLIC ACID 1 MG TAB PO SCH (07:50)
[2020-11-07] MEDS: ZINC SULFATE 220 MG CAP PO SCH (07:51)
[2020-11-07] MEDS: FAMOTIDINE 20 MG TAB PO SCH ×2 (07:51→20:29)
[2020-11-07] MEDS: CALCIUM CARB-VIT D 500 MG-5 MCG TAB PO SCH ×2 (07:51→20:29)
[2020-11-07] MEDS: ASCORBIC ACID 500 MG TAB PO SCH ×2 (07:52→20:29)
[2020-11-07] MEDS: ALBUTEROL HFA INHALER INHALATION PRN ×4 (08:47→20:09)
--- NOTE | 2020-11-07 10:39 | P.PN ---
Subjective Progress Note Date: 11/07/20 Worsening oxygenation status. Inflammatory markers worse today. Continue to monitor. Objective - Vital Signs Vital signs: Vital Signs Temp 98.2 F 11/07/20 09:52 Pulse 92 11/07/20 09:52 Resp 15 11/07/20 09:52 BP 108/65 11/07/20 09:52 Pulse Ox 92 L 11/07/20 09:52 Intake & Output 11/06/20 11/07/20 11/07/20 18:59 06:59 18:59 Intake Total 740 Output Total 425 Balance 315 Intake: Oral 740 Output: Urine 425 Other: # Voids 2 1 # Bowel Movements 1 - Exam Gen: awake, alert HEENT: normocephalic, atraumatic, good hearing acuity, moist mucous membranes Resp: good air exchange, breathing comfortably with no accessory muscle use CVS: good distal perfusion x 4, GI: soft, NTTP, ND : no SPT, no CVAT, varghese catheter not present MSK: no pitting edema, no clubbing Neuro: non-focal, moving all extremities Psych: cooperative, euthymic mood - Labs CBC & Chem 7: 11/05/20 07:18 11/05/20 07:18 Assessment and Plan Assessment: Acute hypoxemic respiratory failure ARDS secondary to Covid 19 -Admit to inpatient, telemetry -Pulmonary consult -Vitamin C/D, zinc, famotidine -Dexamethasone 6 mg IV daily -Inside the window for Remdesivir, however, patient refuses -Not a candidate for IL-6 therapy given recent monoclonal antibody injection -Oxygen when necessary Rheumatoid arthritis -Hold home hydroxy chloroquine Patient is a full code DVT prophylaxis with enoxaparin daily
[2020-11-07] MEDS: bisacodyL 5 MG TABLET.DR PO PRN (11:11)
--- NOTE | 2020-11-07 12:39 | P.PN ---
Subjective Progress Note Date: 11/07/20 75-year-old male patient who presented to the burst department because of worsening shortness of breath. The patient started having symptoms related to COVID-19 on 10/29/2020. The patient was ultimately diagnosed having COVID-19 infection on 11/01/2019 11/07/2020, the patient is still on oxygen and is requiring 10 L. He did have some desaturations earlier and we brought him up to 10 L of oxygen by nasal cannula. His chest x-ray still showing diffuse bilateral pulmonary infiltrates with peripheral distribution and his last chest x-ray was from yesterday. He remains on Decadron 6 mg IV every 24 hours. He is also on Lovenox 40 mg subcu every 12 hours. Her d-dimer was nonelevated, and his d-dimer from today is at 1.39. His LDH level was 920 with a CRP level of 4.2. No other new complaints. No nausea. No vomiting. No emesis. No chest pain. No altered mentation. He is known to have rheumatoid arthritis and he was taken Plaquenil on outpatient basis. Noted along with COVID-19 related treatments, the patient is receiving vitamin C and vitamin D and zinc and Pepcid. Objective - Vital Signs Vital signs: Vital Signs Temp 98.2 F 11/07/20 09:52 Pulse 92 11/07/20 09:52 Resp 15 11/07/20 09:52 BP 108/65 11/07/20 09:52 Pulse Ox 92 L 11/07/20 09:52 Intake & Output 11/06/20 11/07/20 11/07/20 18:59 06:59 18:59 Intake Total 740 Output Total 425 Balance 315 Intake: Oral 740 Output: Urine 425 Other: # Voids 2 1 # Bowel Movements 1 - Exam Gen. appearance the patient is calm and comfortable lying acute distress, currently on 10 L of oxygen by nasal cannula Head exam was generally normal. There was no scleral icterus or corneal arcus. Mucous membranes were moist. Neck was supple and without jugular venous distension, thyromegaly, or carotid bruits. Carotids were easily palpable bilaterally. There was no adenopathy. Lungs sounds are diminished in the patient's tachycardia lung bases bilaterally Cardiac exam revealed the PMI to be normally situated and sized. The rhythm was regular and no extrasystoles were noted during several minutes of auscultation. The first and second heart sounds were normal and physiologic splitting of the second heart sound was noted. There were no murmurs, rubs, clicks, or gallops. Abdominal exam revealed normal bowel sounds. The abdomen was soft, non-tender, and without masses, organomegaly, or appreciable enlargement of the abdominal aorta. Examination of the extremities revealed easily palpable radial, femoral and pedal pulses. There was no cyanosis, clubbing or edema. Examination of the skin revealed no evidence of significant rashes, suspicious appearing nevi or other concerning lesions. Neurologically, the patient is awake and alert and the patient does not have any focal neurological deficit. Cranial nerves are essentially intact. - Labs CBC & Chem 7: 11/05/20 07:18 11/05/20 07:18 Assessment and Plan Plan: 1 acute COVID-19 related pneumonia, the patient was diagnosed on 10/31/2020. The patient received monoclonal antibodies on 11/02/2020. Patient's symptoms involved in 10/29/2020. Patient is currently on Decadron and the patient refused remdesivir, currently on 10 L nasal cannula 2 acute hypoxic respiratory failure secondary COVID-19 related pneumonia. Clinically, the patient is the same. Nevertheless, his LDH is on the rise. His chest x-ray shows worsening of the bilateral pulmonary infiltrates. He is up to 80s of oxygen by nasal cannula. 3 mild elevation of inflammatory markers secondary to above 4 rheumatoid arthritis maintained on Plaquenil outpatient basis 5 osteoarthritis Plan Monitor oxygenation and titrate oxygen flow to maintain saturation above 90% Titrate FiO2 to maintain a saturation above 90% Continue the combination of Decadron and he qualifies for Remdesivir (denied/refused the drug) May continue Plaquenil, currently off Continue Lovenox Repeat inflammatory markers tomorrow and repeat chest x-ray in the morning We'll continue to follow
[2020-11-07] MEDS: LOSARTAN 50 MG TAB PO SCH (20:29)
[2020-11-07] MEDS: MELATONIN 5 MG TABLET PO SCH (20:29)
[2020-11-08] MEDS: ENOXAPARIN 40 MG/0.4 ML SYRINGE SQ SCH (07:47)
[2020-11-08] MEDS: DEXAMETHASONE SOD PHOSPHATE 10 MG/ML 1 ML VIAL IV SCH (07:47)
[2020-11-08] MEDS: FAMOTIDINE 20 MG TAB PO SCH ×2 (07:48→19:52)
[2020-11-08] MEDS: CHOLECALCIFEROL 25 MCG (1000 IU) TABLET PO SCH ×2 (07:48→19:52)
[2020-11-08] MEDS: ZINC SULFATE 220 MG CAP PO SCH (07:48)
[2020-11-08] MEDS: CALCIUM CARB-VIT D 500 MG-5 MCG TAB PO SCH ×2 (07:48→19:52)
[2020-11-08] MEDS: FOLIC ACID 1 MG TAB PO SCH (07:48)
[2020-11-08] MEDS: ASCORBIC ACID 500 MG TAB PO SCH ×2 (07:48→19:52)
--- NOTE | 2020-11-08 09:05 | XR ---
EXAMINATION TYPE: XR chest 1V portable DATE OF EXAM: 11/08/2020 Comparison: 11/06/2020 Clinical History: 75-year-old male COVID Findings: Heart normal size. Diffuse interstitial density. Airspace opacity in the periphery of the bilateral lungs. Overall relatively unchanged. No sizable effusion. Impression: Continued bilateral peripheral COVID pneumonia.
--- NOTE | 2020-11-08 10:48 | P.PN ---
Subjective Progress Note Date: 11/08/20 Oxygenation status is stable at 10L for now. Pt reports some subjective improvement in breathing. Inflammatory markers pending today. Continue to monitor. Objective - Vital Signs Vital signs: Vital Signs Temp 98.1 F 11/08/20 09:30 Pulse 92 11/08/20 09:30 Resp 17 11/08/20 09:30 BP 129/79 11/08/20 09:30 Pulse Ox 90 L 11/08/20 09:30 Intake & Output 11/07/20 11/08/20 11/08/20 18:59 06:59 18:59 Other: Voiding Method Bedside Commode Urinal # Voids 2 3 # Bowel Movements 1 - Exam Gen: awake, alert HEENT: normocephalic, atraumatic, good hearing acuity, moist mucous membranes Resp: good air exchange, breathing comfortably with no accessory muscle use CVS: good distal perfusion x 4, GI: soft, NTTP, ND : no SPT, no CVAT, varghese catheter not present MSK: no pitting edema, no clubbing Neuro: non-focal, moving all extremities Psych: cooperative, euthymic mood - Labs CBC & Chem 7: 11/05/20 07:18 11/05/20 07:18 Assessment and Plan Assessment: Acute hypoxemic respiratory failure ARDS secondary to Covid 19 -Admit to inpatient, telemetry -Pulmonary consult -Vitamin C/D, zinc, famotidine -Dexamethasone 6 mg IV daily -Now outside of the window for Remdesivir -Not a candidate for IL-6 therapy given recent monoclonal antibody injection -Oxygen when necessary -daily inflammatory markers Rheumatoid arthritis -Hold home hydroxychloroquine Patient is a full code DVT prophylaxis with enoxaparin daily
[2020-11-08] MEDS: ALBUTEROL HFA INHALER INHALATION PRN ×2 (12:14→15:14)
--- NOTE | 2020-11-08 15:42 | P.PN ---
Subjective Progress Note Date: 11/08/20 75-year-old male patient who presented to the burst department because of worsening shortness of breath. The patient started having symptoms related to COVID-19 on 10/29/2020. The patient was ultimately diagnosed having COVID-19 infection on 11/01/2019 11/08/2020, the patient is still on 10 L of oxygen by nasal cannula. Clinically unchanged. Chest x-ray findings are also unchanged. The patient is still requiring 10 L of oxygen by nasal cannula. The patient remains on Decadron 6 mg IV every 24 hours on Lovenox 40 mg subcu every 12 hours. No new complaints. The chest x-ray findings are essentially stable with possibly some limited worsening of the left compared to the earlier chest x-ray. Clinically however, the patient is essentially the same. He is also receiving vitamin C, vitamin D, zinc oxide and Pepcid. In terms of his blood work, the d-dimer is currently at 1.39 from 11/06/2020. Follow-up levels need to be done in terms of his inflammatory markers and this will also include LDH and CRP. Objective - Vital Signs Vital signs: Vital Signs Temp 97.8 F 11/08/20 13:17 Pulse 103 H 11/08/20 13:17 Resp 18 11/08/20 13:17 BP 131/87 11/08/20 13:17 Pulse Ox 91 L 11/08/20 13:17 Intake & Output 11/07/20 11/08/20 11/08/20 18:59 06:59 18:59 Other: Voiding Method Bedside Commode Urinal # Voids 2 3 # Bowel Movements 1 1 - Exam Gen. appearance the patient is calm and comfortable lying acute distress, currently on 10 L of oxygen by nasal cannula Head exam was generally normal. There was no scleral icterus or corneal arcus. Mucous membranes were moist. Neck was supple and without jugular venous distension, thyromegaly, or carotid bruits. Carotids were easily palpable bilaterally. There was no adenopathy. Lungs sounds are diminished in the patient's tachycardia lung bases bilaterally Cardiac exam revealed the PMI to be normally situated and sized. The rhythm was regular and no extrasystoles were noted during several minutes of auscultation. The first and second heart sounds were normal and physiologic splitting of the second heart sound was noted. There were no murmurs, rubs, clicks, or gallops. Abdominal exam revealed normal bowel sounds. The abdomen was soft, non-tender, and without masses, organomegaly, or appreciable enlargement of the abdominal aorta. Examination of the extremities revealed easily palpable radial, femoral and pedal pulses. There was no cyanosis, clubbing or edema. Examination of the skin revealed no evidence of significant rashes, suspicious appearing nevi or other concerning lesions. Neurologically, the patient is awake and alert and the patient does not have any focal neurological deficit. Cranial nerves are essentially intact. - Labs CBC & Chem 7: 11/05/20 07:18 11/05/20 07:18 Assessment and Plan Plan: 1 acute COVID-19 related pneumonia, the patient was diagnosed on 10/31/2020. The patient received monoclonal antibodies on 11/02/2020. Patient's symptoms involved in 10/29/2020. Patient is currently on Decadron and the patient refused remdesivir, currently on 10 L nasal cannula, clinically unchanged compared to yesterday. Chest x-ray findings are unchanged. Oxygen flow requirement is also unchanged. 2 acute hypoxic respiratory failure secondary COVID-19 related pneumonia. Cl inically, the patient is the same. Nevertheless, his LDH is on the rise. His chest x-ray shows worsening of the bilateral pulmonary infiltrates. He is up to 80s of oxygen by nasal cannula. 3 mild elevation of inflammatory markers secondary to above 4 rheumatoid arthritis maintained on Plaquenil outpatient basis 5 osteoarthritis Plan Monitor oxygenation and titrate oxygen flow to maintain saturation above 90% Titrate FiO2 to maintain a saturation above 90% Repeat inflammatory markers in a.m. Continue the combination of Decadron and he qualifies for Remdesivir (denied/refused the drug) May continue Plaquenil, currently off Continue Lovenox 40 mg subcu on a daily basis. D-dimer level was nonelevated. Repeat inflammatory markers tomorrow and repeat chest x-ray in the morning We'll continue to follow
[2020-11-08] MEDS: LOSARTAN 50 MG TAB PO SCH (19:51)
[2020-11-08] MEDS: MELATONIN 5 MG TABLET PO SCH (19:51)
[2020-11-09] MEDS: ALBUTEROL HFA INHALER INHALATION PRN ×2 (07:20→12:28)
[2020-11-09 07:48] LABS: C Reactive Protein 2.8 mg/dL (<1.0)
[2020-11-09] MEDS: ENOXAPARIN 40 MG/0.4 ML SYRINGE SQ SCH (08:38)
[2020-11-09] MEDS: ASCORBIC ACID 500 MG TAB PO SCH ×2 (08:39→23:47)
[2020-11-09] MEDS: ZINC SULFATE 220 MG CAP PO SCH (08:39)
[2020-11-09] MEDS: FOLIC ACID 1 MG TAB PO SCH (08:39)
[2020-11-09] MEDS: CHOLECALCIFEROL 25 MCG (1000 IU) TABLET PO SCH ×2 (08:39→23:47)
[2020-11-09] MEDS: FAMOTIDINE 20 MG TAB PO SCH ×2 (08:39→23:47)
[2020-11-09] MEDS: CALCIUM CARB-VIT D 500 MG-5 MCG TAB PO SCH ×2 (08:39→23:48)
[2020-11-09] MEDS: DEXAMETHASONE SOD PHOSPHATE 10 MG/ML 1 ML VIAL IV SCH (08:39)
[2020-11-09 14:01] VITALS: BMI 33.0
--- NOTE | 2020-11-09 15:12 | P.PN ---
Subjective Progress Note Date: 11/09/20 75-year-old male patient who presented to the burst department because of worsening shortness of breath. The patient started having symptoms related to COVID-19 on 10/29/2020. The patient was ultimately diagnosed having COVID-19 infection on 11/01/2019 11/09/2020, the patient is on 8 L of oxygen by nasal cannula. The patient on Decadron 6 mg IV every 24 hours and the patient is also on Lovenox 40 mg subcu every 12 hours. He is feeling great. He feels that is improving. Inflammatory markers were essentially noted and the patient has a drop in her LDH level down to 648 and the CRP is down to 2.8. There is a slight rise in the d-dimer up to 5.57. No new complaints otherwise for now. No nausea. No vomiting. No chest pain. Occasional dry cough. Adequate mentation. Objective - Vital Signs Vital signs: Vital Signs Temp 98.1 F 11/09/20 13:50 Pulse 89 11/09/20 13:50 Resp 17 11/09/20 13:50 BP 112/73 11/09/20 13:50 Pulse Ox 96 11/09/20 13:50 Intake & Output 11/08/20 11/09/20 11/09/20 18:59 06:59 18:59 Output Total 500 Balance -500 Weight 104.326 kg Output: Urine 500 Other: Voiding Method Bedside Commode Bedside Commode Urinal Urinal # Bowel Movements 1 - Exam Gen. appearance the patient is calm and comfortable lying acute distress, currently on 8 L of oxygen by nasal cannula Head exam was generally normal. There was no scleral icterus or corneal arcus. Mucous membranes were moist. Neck was supple and without jugular venous distension, thyromegaly, or carotid bruits. Carotids were easily palpable bilaterally. There was no adenopathy. Lungs sounds are diminished in the patient's tachycardia lung bases bilaterally Cardiac exam revealed the PMI to be normally situated and sized. The rhythm was regular and no extrasystoles were noted during several minutes of auscultation. The first and second heart sounds were normal and physiologic splitting of the second heart sound was noted. There were no murmurs, rubs, clicks, or gallops. Abdominal exam revealed normal bowel sounds. The abdomen was soft, non-tender, and without masses, organomegaly, or appreciable enlargement of the abdominal aorta. Examination of the extremities revealed easily palpable radial, femoral and pedal pulses. There was no cyanosis, clubbing or edema. Examination of the skin revealed no evidence of significant rashes, suspicious appearing nevi or other concerning lesions. Neurologically, the patient is awake and alert and the patient does not have any focal neurological deficit. Cranial nerves are essentially intact. - Labs CBC & Chem 7: 11/05/20 07:18 11/05/20 07:18 Labs: Abnormal Lab Results - Last 24 Hours (Table) 11/09/20 11/09/20 Range/Units 06:30 06:30 D-Dimer 5.57 H (<0.60) mg/L FEU Lactate Dehydrogenase 648 H (313-618) U/L C-Reactive Protein 2.8 H (<1.0) mg/dL Assessment and Plan Plan: 1 acute COVID-19 related pneumonia, the patient was diagnosed on 10/31/2020. The patient received monoclonal antibodies on 11/02/2020. Patient's symptoms involved in 10/29/2020. Patient is currently on Decadron and the patient refused remdesivir, currently on 10 L nasal cannula, clinically unchanged compared to yesterday. Chest x-ray findings are unchanged. Oxygen flow requirement is also unchanged. 2 acute hypoxic respiratory failure secondary COVID-19 related pneumonia. Clinically, the patient is the same. Nevertheless, his LDH is on the rise. His chest x-ray shows worsening of the bilateral pulmonary infiltrates. He is up to 80s of oxygen by nasal cannula. 3 mild elevation of inflammatory markers secondary to above 4 rheumatoid arthritis maintained on Plaquenil outpatient basis 5 osteoarthritis Plan Monitor oxygenation and titrate oxygen flow to maintain saturation above 90% Titrate FiO2 to maintain a saturation above 90%, drop the FiO2 down to 6 liters per minute and monitor the pulse ox Repeat inflammatory markers in a.m. was noted and LDH and CRP are improving Continue the combination of Decadron and he qualifies for Remdesivir (denied/refused the drug) May continue Plaquenil, currently off Continue Lovenox 40 mg subcu on a daily basis. D-dimer level is mildly elevated, no need to modify the Lovenox dose for now as the patient is quite active. Repeat inflammatory markers tomorrow and repeat chest x-ray in the morning We'll continue to follow
--- NOTE | 2020-11-09 16:17 | P.PN ---
Subjective Progress Note Date: 11/09/20 No significant events overnight. Patient's oxygen requirement has improved from 10 L down to 8 L today. He is ambulating in the room, denies any shortness of breath at rest, no chest pain, cough is improving, he has been afebrile and vital signs have been stable. He is tolerating regular diet and is having regular bowel movements. Objective - Vital Signs Vital signs: Vital Signs Temp 98.1 F 11/09/20 13:50 Pulse 89 11/09/20 13:50 Resp 17 11/09/20 13:50 BP 112/73 11/09/20 13:50 Pulse Ox 96 11/09/20 13:50 Intake & Output 11/08/20 11/09/20 11/09/20 18:59 06:59 18:59 Output Total 500 Balance -500 Weight 104.326 kg Output: Urine 500 Other: Voiding Method Bedside Commode Bedside Commode Urinal Urinal # Bowel Movements 1 - Exam Gen: awake, alert HEENT: normocephalic, atraumatic, moist mucous membranes Resp: good air exchange, breathing comfortably with no accessory muscle use CVS: good distal perfusion x 4, GI: soft, NTTP, ND MSK: no pitting edema, no clubbing Neuro: non-focal, moving all extremities Psych: cooperative, euthymic mood - Labs CBC & Chem 7: 11/05/20 07:18 11/05/20 07:18 Labs: Abnormal Lab Results - Last 24 Hours (Table) 11/09/20 11/09/20 Range/Units 06:30 06:30 D-Dimer 5.57 H (<0.60) mg/L FEU Lactate Dehydrogenase 648 H (313-618) U/L C-Reactive Protein 2.8 H (<1.0) mg/dL Assessment and Plan Plan: # COVID 19- Pneumonia -Diagnosed on 10/31/2020 -Received monoclonal antibodies on 11/02/20 -Slight improvement in terms of his oxygen requirement, currently on 8L per min down from 10 L -CRP has been improving for the last 2 days, but d-dimer and LDH have increased -Continue Decadron -Refused Remdesivir -Maintain oxygen saturation greater than 90% -Consider repeating CTA if d-dimer continues to increase or if there is worsening hypoxia # Acute hypoxic respiratory failure -Improving -Secondary to COVID-19 -Currently on 8 L/min -No history of home oxygen use -Assess need for home oxygen prior to discharge # History of rheumatoid arthritis -Home dose Plaquenil may be resumed Patient may be discharged home once his oxygen requirement is between 4 and 6 L/min
[2020-11-09] MEDS: MELATONIN 5 MG TABLET PO SCH (23:46)
[2020-11-09] MEDS: LOSARTAN 50 MG TAB PO SCH (23:47)
[2020-11-09] MEDS: HYDROXYCHLOROQUINE SULFATE 200 MG TAB PO SCH (23:48)
--- NOTE | 2020-11-10 07:10 | XR ---
EXAMINATION TYPE: XR chest 1V portable DATE OF EXAM: 11/10/2020 CLINICAL HISTORY: Difficulty breathing and covid progress study. TECHNIQUE: Single AP portable upright view of the chest is obtained. COMPARISON: Chest x-ray from 2 days earlier and older exams. FINDINGS: Multifocal and confluent opacities bilaterally greatest in the periphery redemonstrated. C ardiac silhouette size is stable and within normal limits with atherosclerotic change aortic knob. De generative change right glenohumeral joint redemonstrated IMPRESSION: Bilateral multifocal and confluent opacities greatest in the periphery consistent with kn own covid-19 infection, no significant change from most recent study.
[2020-11-10] MEDS: ALBUTEROL HFA INHALER INHALATION PRN (08:23)
[2020-11-10 09:07] LABS: Anion Gap 6 mmol/L; Blood Urea Nitrogen 29 mg/dL (9-20); Carbon Dioxide 27 mmol/L (22-30); Chloride 101 mmol/L (98-107); Glucose 215 mg/dL (74-99); Potassium 4.5 mmol/L (3.5-5.1); Sodium 134 mmol/L (137-145)
[2020-11-10 09:08] LABS: ALT 20 U/L (4-49); AST 20 U/L (17-59); African American GFR (CKD) >90 (>60 ml/min/1.73 sqM); Alkaline Phosphatase 55 U/L (38-126); Calcium 9.3 mg/dL (8.4-10.2); LDH 653 U/L (313-618); Magnesium 1.8 mg/dL (1.6-2.3); Non-African American GFR(CKD) >90 (>60 ml/min/1.73 sqM); Total Bilirubin 0.8 mg/dL (0.2-1.3)
[2020-11-10] MEDS: ASCORBIC ACID 500 MG TAB PO SCH ×2 (09:11→21:45)
[2020-11-10] MEDS: CHOLECALCIFEROL 25 MCG (1000 IU) TABLET PO SCH ×2 (09:11→21:45)
[2020-11-10] MEDS: FAMOTIDINE 20 MG TAB PO SCH ×2 (09:11→21:46)
[2020-11-10] MEDS: FOLIC ACID 1 MG TAB PO SCH (09:11)
[2020-11-10] MEDS: ENOXAPARIN 40 MG/0.4 ML SYRINGE SQ SCH ×2 (09:11→21:46)
[2020-11-10] MEDS: CALCIUM CARB-VIT D 500 MG-5 MCG TAB PO SCH ×2 (09:11→21:46)
[2020-11-10] MEDS: DEXAMETHASONE SOD PHOSPHATE 10 MG/ML 1 ML VIAL IV SCH (09:11)
[2020-11-10] MEDS: ZINC SULFATE 220 MG CAP PO SCH (09:11)
[2020-11-10] MEDS: HYDROXYCHLOROQUINE SULFATE 200 MG TAB PO SCH ×2 (09:11→21:46)
[2020-11-10 09:24] LABS: C Reactive Protein 1.6 mg/dL (<1.0)
[2020-11-10 11:50] LABS: Basophils # (A) 0.03 X 10*3/uL (0.00-0.10); Basophils % (A) 0.4 %; Eosinophils # (A) 0.12 X 10*3/uL (0.04-0.35); Eosinophils % (A) 1.5 %; HGB 14.7 g/dL (13.0-17.0); Lymphocytes # (A) 1.08 X 10*3/uL (0.90-5.00); Lymphocytes % (A) 13.5 %; MCH 31.1 pg (27.0-32.0); MCHC 34.2 g/dL (32.0-37.0); MCV 91.1 fL (80.0-97.0); Mean Platelet Volume 9.1 fL (9.5-12.2); Monocytes # (A) 0.68 X 10*3/uL (0.20-1.00); Monocytes % (A) 8.5 %; Neutrophils # (A) 5.93 X 10*3/uL (1.80-7.70); Neutrophils % (A) 74.2 %; Platelet Count 352 X 10*3/uL (140-440); RBC 4.72 X 10*6/uL (4.40-5.60); WBC 7.99 X 10*3/uL (4.50-10.00)
--- NOTE | 2020-11-10 12:20 | P.PN ---
Subjective Progress Note Date: 11/10/20 The patient is seen today 11/10/2020 in follow-up on the regular medical floor. He is currently sitting up in a chair at the bedside. Awake and alert in no acute distress. Maintaining O2 saturation in low 90s on 6 L high flow nasal cannula. Afebrile. Hemodynamically stable. White count 7.9. Hemoglobin 14.7. D-dimer 6.65. Sodium 134. Potassium 4.5. Creatinine 0.69. Glucose 215. LDH 653. C-reactive protein 1.6. He is continued on Lovenox, Decadron, vitamin supplements. Chest x-ray continues show bilateral multifocal opacities. Objective - Vital Signs Vital signs: Vital Signs Temp 97.5 F L 11/10/20 09:47 Pulse 79 11/10/20 09:47 Resp 18 11/10/20 09:47 BP 106/73 11/10/20 09:47 Pulse Ox 92 L 11/10/20 09:47 Intake & Output 11/09/20 11/10/20 11/10/20 18:59 06:59 18:59 Weight 104.326 kg Other: Voiding Method Bedside Commode Bedside Commode Urinal Urinal # Voids 4 3 - Exam Gen. appearance the patient is a 75-year-old gentleman, calm and comfortable lying acute distress, currently on 6 L of oxygen by nasal cannula Head exam was generally normal. There was no scleral icterus or corneal arcus. Mucous membranes were moist. Neck was supple and without jugular venous distension, thyromegaly, or carotid bruits. Carotids were easily palpable bilaterally. There was no adenopathy. Lungs sounds are diminished and coarse crackles in the lung bases bilaterally Cardiac exam revealed the PMI to be normally situated and sized. The rhythm was regular and no extrasystoles were noted during several minutes of auscultation. The first and second heart sounds were normal and physiologic splitting of the second heart sound was noted. There were no murmurs, rubs, clicks, or gallops. Abdominal exam revealed normal bowel sounds. The abdomen was soft, non-tender, and without masses, organomegaly, or appreciable enlargement of the abdominal ao rta. Examination of the extremities revealed easily palpable radial, femoral and pedal pulses. There was no cyanosis, clubbing or edema. Examination of the skin revealed no evidence of significant rashes, suspicious appearing nevi or other concerning lesions. Neurologically, the patient is awake and alert and the patient does not have any focal neurological deficit. Cranial nerves are essentially intact. - Labs CBC & Chem 7: 11/10/20 08:23 11/10/20 08:23 Labs: Abnormal Lab Results - Last 24 Hours (Table) 11/10/20 11/10/20 11/10/20 Range/Units 08:23 08:23 08:23 MPV 9.1 L (9.5-12.2) fL Immature Gran # 0.15 H (0.00-0.04) X 10*3/uL D-Dimer 6.65 H (<0.60) mg/L FEU Sodium 134 L (137-145) mmol/L BUN 29 H (9-20) mg/dL Glucose 215 H (74-99) mg/dL Lactate Dehydrogenase 653 H (313-618) U/L C-Reactive Protein 1.6 H (<1.0) mg/dL Total Protein 6.0 L (6.3-8.2) g/dL Albumin 3.0 L (3.5-5.0) g/dL Assessment and Plan Assessment: 1 acute COVID-19 related pneumonia, the patient was diagnosed on 10/31/2020. The patient received monoclonal antibodies on 11/02/2020. Patient's symptoms involved in 10/29/2020. Patient is currently on Decadron and the patient refused remdesivir. Chest x-ray findings continue to show bilateral multifocal confluent opacities in the periphery consistent with COVID-19 pneumonia. Oxygen flow requirement is slightly improved to 6 L high flow nasal cannula. 2 acute hypoxic respiratory failure secondary COVID-19 related pneumonia. 3 mild elevation of inflammatory markers secondary to above 4 rheumatoid arthritis maintained on Plaquenil outpatient basis 5 osteoarthritis Plan: The patient was seen and evaluated by Dr. Roe Chest x-ray and labs reviewed D-dimer up to 6.6 Will increase Lovenox to 40 mg twice a day Remains on IV Decadron, vitamin supplements Titrate down the FiO2 as tolerated We will continue to follow I, the cosigning physician, performed a history & physical examination of the patient. Lungs sounds crackles in the bilateral bases. Maintaining good O2 saturations in the 90s on 6 liters high flow nasal cannula. I discussed the assessment and plan of care with my nurse practitioner, Felicita Nguyen. I attest to the above note as dictated by her.
--- NOTE | 2020-11-10 17:04 | P.PN ---
Subjective Progress Note Date: 11/10/20 Patient reports feeling better today, oxygen requirement has been improving daily. He is currently on 5 L of oxygen, he was on 10 L 24 hours ago. Denies any chest pain, shows a breath at rest, fevers or chills, no cough. He is ambulating with minimal difficulty in the room, tolerating regular diet, normal bowel movements. Overall he continues to progress on a daily basis and is anticipated to be discharged within the next 24-48 hours Objective - Vital Signs Vital signs: Vital Signs Temp 97.9 F 11/10/20 14:00 Pulse 83 11/10/20 14:00 Resp 18 11/10/20 14:00 BP 117/74 11/10/20 14:00 Pulse Ox 95 11/10/20 14:00 Intake & Output 11/09/20 11/10/20 11/10/20 18:59 06:59 18:59 Weight 104.326 kg Other: Voiding Method Bedside Commode Bedside Commode Urinal Urinal # Voids 4 3 2 - Exam Gen: awake, alert HEENT: normocephalic, atraumatic, moist mucous membranes Resp: good air exchange, breathing comfortably with no accessory muscle use CVS: Regular rate and rhythm, no murmurs GI: soft, NTTP, ND MSK: no pitting edema, no clubbing Neuro: non-focal, moving all extremities Psych: cooperative, euthymic mood - Labs CBC & Chem 7: 11/10/20 08:23 11/10/20 08:23 Labs: Abnormal Lab Results - Last 24 Hours (Table) 11/10/20 11/10/20 11/10/20 Range/Units 08:23 08:23 08:23 MPV 9.1 L (9.5-12.2) fL Immature Gran # 0.15 H (0.00-0.04) X 10*3/uL D-Dimer 6.65 H (<0.60) mg/L FEU Sodium 134 L (137-145) mmol/L BUN 29 H (9-20) mg/dL Glucose 215 H (74-99) mg/dL Lactate Dehydrogenase 653 H (313-618) U/L C-Reactive Protein 1.6 H (<1.0) mg/dL Total Protein 6.0 L (6.3-8.2) g/dL Albumin 3.0 L (3.5-5.0) g/dL Assessment and Plan Plan: # COVID 19- Pneumonia -Improving -Diagnosed on 10/31/2020 -Received monoclonal antibodies on 11/02/20 -Currently on 5 L of oxygen down from 10 L -inflammatory markers have been improving -Continue Decadron -Refused Remdesivir -Maintain oxygen saturation greater than 90% -Consider repeating CTA if d-dimer continues to increase or if there is worsening hypoxia # Acute hypoxic respiratory failure -Improving -Secondary to COVID-19 -Currently on 5 L/min -No history of home oxygen use -Assess need for home oxygen prior to discharge # History of rheumatoid arthritis -Home dose Plaquenil resumed Patient may be discharged home once his oxygen requirement is between 4L/min Time with Patient: Less than 30
[2020-11-10] MEDS: LOSARTAN 50 MG TAB PO SCH (21:45)
[2020-11-10] MEDS: MELATONIN 5 MG TABLET PO SCH (21:46)
[2020-11-11] MEDS: DEXAMETHASONE SOD PHOSPHATE 10 MG/ML 1 ML VIAL IV SCH (07:36)
[2020-11-11] MEDS: ASCORBIC ACID 500 MG TAB PO SCH ×2 (07:37→20:57)
[2020-11-11] MEDS: HYDROXYCHLOROQUINE SULFATE 200 MG TAB PO SCH ×2 (07:37→20:56)
[2020-11-11] MEDS: ENOXAPARIN 40 MG/0.4 ML SYRINGE SQ SCH ×2 (07:37→20:56)
[2020-11-11] MEDS: ZINC SULFATE 220 MG CAP PO SCH (07:37)
[2020-11-11] MEDS: CALCIUM CARB-VIT D 500 MG-5 MCG TAB PO SCH ×2 (07:37→20:56)
[2020-11-11] MEDS: FAMOTIDINE 20 MG TAB PO SCH ×2 (07:37→20:56)
[2020-11-11] MEDS: CHOLECALCIFEROL 25 MCG (1000 IU) TABLET PO SCH ×2 (07:38→20:56)
[2020-11-11] MEDS: FOLIC ACID 1 MG TAB PO SCH (07:38)
[2020-11-11] MEDS: bisacodyL 5 MG TABLET.DR PO PRN (07:43)
[2020-11-11] MEDS: ALBUTEROL HFA INHALER INHALATION PRN ×2 (09:50→16:23)
--- NOTE | 2020-11-11 14:25 | P.PN ---
Subjective Progress Note Date: 11/11/20 75-year-old male patient who presented to the burst department because of worsening shortness of breath. The patient started having symptoms related to COVID-19 on 10/29/2020. The patient was ultimately diagnosed having COVID-19 infection on 11/01/2019 11/11/2020, no new complaints. The patient is on 5 L of oxygen by nasal cannula and this will be tapered further. He is sitting up on a chair. Breathing comfortably. He is having progressive improvement in his oxygenation. As such is improving in terms of his COVID-19 related pneumonia. His d-dimer is at 5.9. LDH was down to 663. CRP is at 1.6. He remains on Decadron 6 mg every 24 hours. He is also on Lovenox and the dose was adjusted to 40 mg twice a day based on elevated d-dimer. No chest pain. No pleurisy. No hemoptysis. Tamara quate mentation. Objective - Vital Signs Vital signs: Vital Signs Temp 97.5 F L 11/11/20 09:43 Pulse 76 11/11/20 09:43 Resp 18 11/11/20 09:43 BP 117/73 11/11/20 09:43 Pulse Ox 95 11/11/20 09:43 Intake & Output 11/10/20 11/11/20 11/11/20 18:59 06:59 18:59 Output Total 300 Balance -300 Output: Urine 300 Other: Voiding Method Bedside Commode Urinal # Voids 2 3 - Exam Gen. appearance the patient is calm and comfortable lying acute distress, currently on 5 L of oxygen by nasal cannula Head exam was generally normal. There was no scleral icterus or corneal arcus. Mucous membranes were moist. Neck was supple and without jugular venous distension, thyromegaly, or carotid bruits. Carotids were easily palpable bilaterally. There was no adenopathy. Lungs sounds are diminished in the patient's tachycardia lung bases bilaterally Cardiac exam revealed the PMI to be normally situated and sized. The rhythm was regular and no extrasystoles were noted during several minutes of auscultation. The first and second heart sounds were normal and physiologic splitting of the second heart sound was noted. There were no murmurs, rubs, clicks, or gallops. Abdominal exam revealed normal bowel sounds. The abdomen was soft, non-tender, and without masses, organomegaly, or appreciable enlargement of the abdominal aorta. Examination of the extremities revealed easily palpable radial, femoral and pedal pulses. There was no cyanosis, clubbing or edema. Examination of the skin revealed no evidence of significant rashes, suspicious appearing nevi or other concerning lesions. Neurologically, the patient is awake and alert and the patient does not have any focal neurological deficit. Cranial nerves are essentially intact. - Labs CBC & Chem 7: 11/10/20 08:23 11/10/20 08:23 Labs: Abnormal Lab Results - Last 24 Hours (Table) 11/11/20 Range/Units 09:37 D-Dimer 5.95 H (<0.60) mg/L FEU Assessment and Plan Plan: 1 acute COVID-19 related pneumonia, the patient was diagnosed on 10/31/2020. The patient received monoclonal antibodies on 11/02/2020. Patient's symptoms involved in 10/29/2020. Patient is currently on Decadron and the patient refused remdesivir, currently on 5 L nasal cannula, clinically unchanged compared to yesterday. Clinically improving and the patient has steady improvement in his oxygenation 2 acute hypoxic respiratory failure secondary COVID-19 related pneumonia. Clinically, the patient is the same. Nevertheless, his LDH is on the rise. His chest x-ray shows worsening of the bilateral pulmonary infiltrates. He is on 5 L of oxygen by nasal cannula. There is no steady improvement in patient's oxygenation currently on 5 L 3 mild elevation of inflammatory markers secondary to above 4 rheumatoid arthritis maintained on Plaquenil outpatient basis 5 osteoarthritis Plan Monitor oxygenation and titrate oxygen flow to maintain saturation above 90% Titrate FiO2 to maintain a saturation above 90%, drop the FiO2 down to below 5 L liters per minute and monitor the pulse ox Repeat inflammatory markers in a.m. was noted and LDH and CRP are improving Continue the combination of Decadron and he qualifies for Remdesivir (denied/refused the drug) May continue Plaquenil Continue Lovenox 40 mg subcu on a daily basis. D-dimer level is mildly elevated, no need to modify the Lovenox dose for now as the patient is quite active. Repeat inflammatory markers tomorrow and repeat chest x-ray in the morning We'll continue to follow possible home tomorrow with home O2
--- NOTE | 2020-11-11 14:44 | P.PN ---
Subjective Progress Note Date: 11/11/20 no significant events overnight, patient has no new complaints or symptoms. He denies any shortness of breath at rest, he is ambulating in the room with no difficulty on 5 L of oxygen, with his saturation in the low 90s. He denies any chest pain, no fevers or chills, no cough, no headache, no abdominal pain, he is tolerating regular diet, last bowel movement was 3 days ago and he is currently receiving stool softeners. Inflammatory markers are improving, but his Lovenox dose was increased to 40 mg twice a day based on his d-dimer Objective - Vital Signs Vital signs: Vital Signs Temp 97.5 F L 11/11/20 09:43 Pulse 76 11/11/20 09:43 Resp 18 11/11/20 09:43 BP 117/73 11/11/20 09:43 Pulse Ox 95 11/11/20 09:43 Intake & Output 11/10/20 11/11/20 11/11/20 18:59 06:59 18:59 Output Total 300 Balance -300 Output: Urine 300 Other: Voiding Method Bedside Commode Urinal # Voids 2 3 - Exam Gen: awake, alert HEENT: normocephalic, atraumatic, moist mucous membranes Resp: good air exchange, breathing comfortably with no accessory muscle use CVS: Regular rate and rhythm, no murmurs GI: soft, NTTP, ND MSK: no pitting edema, no clubbing Neuro: non-focal, moving all extremities Psych: cooperative, euthymic mood - Labs CBC & Chem 7: 11/10/20 08:23 11/10/20 08:23 Labs: Abnormal Lab Results - Last 24 Hours (Table) 11/11/20 Range/Units 09:37 D-Dimer 5.95 H (<0.60) mg/L FEU Assessment and Plan Plan: # COVID 19- Pneumonia -Improving -Diagnosed on 10/31/2020 -Received monoclonal antibodies on 11/02/20 -Currently on 5 L of oxygen down from 10 L -inflammatory markers have been improving -Continue Decadron -Refused Remdesivir -Maintain oxygen saturation greater than 90% -Consider repeating CTA if d-dimer continues to increase or if there is worsening hypoxia # Acute hypoxic respiratory failure -Improving -Secondary to COVID-19 -Currently on 5 L/min -Lovenox was increased to twice a day dosing based on elevated d-dimer -No history of home oxygen use -will most likely need home oxygen at discharge # History of rheumatoid arthritis -Home dose Plaquenil resumed anticipated discharge home in the next 24 hours with home oxygen Time with Patient: Less than 30
[2020-11-11] MEDS: LOSARTAN 50 MG TAB PO SCH (20:57)
[2020-11-11] MEDS: MELATONIN 5 MG TABLET PO SCH (20:57)
[2020-11-12] MEDS: CHOLECALCIFEROL 25 MCG (1000 IU) TABLET PO SCH (08:02)
[2020-11-12] MEDS: ZINC SULFATE 220 MG CAP PO SCH (08:02)
[2020-11-12] MEDS: FAMOTIDINE 20 MG TAB PO SCH (08:02)
[2020-11-12] MEDS: HYDROXYCHLOROQUINE SULFATE 200 MG TAB PO SCH (08:03)
[2020-11-12] MEDS: FOLIC ACID 1 MG TAB PO SCH (08:03)
[2020-11-12] MEDS: DEXAMETHASONE SOD PHOSPHATE 10 MG/ML 1 ML VIAL IV SCH (08:03)
[2020-11-12] MEDS: CALCIUM CARB-VIT D 500 MG-5 MCG TAB PO SCH (08:03)
[2020-11-12] MEDS: ENOXAPARIN 40 MG/0.4 ML SYRINGE SQ SCH (08:03)
[2020-11-12] MEDS: ASCORBIC ACID 500 MG TAB PO SCH (08:03)
[2020-11-12 10:22] VITALS: BP 103/62; PULSE 62; RESP 18; TEMP 97.9
[2020-11-12 11:09] LABS: Basophils # (A) 0.01 X 10*3/uL (0.00-0.10); Basophils % (A) 0.1 %; Eosinophils # (A) 0.06 X 10*3/uL (0.04-0.35); Eosinophils % (A) 0.6 %; HCT 42.2 % (39.6-50.0); HGB 14.3 g/dL (13.0-17.0); Lymphocytes # (A) 1.21 X 10*3/uL (0.90-5.00); Lymphocytes % (A) 12.8 %; MCH 30.8 pg (27.0-32.0); MCHC 33.9 g/dL (32.0-37.0); MCV 90.9 fL (80.0-97.0); Mean Platelet Volume 9.2 fL (9.5-12.2); Monocytes # (A) 1.02 X 10*3/uL (0.20-1.00); Monocytes % (A) 10.8 %; Neutrophils # (A) 6.99 X 10*3/uL (1.80-7.70); Neutrophils % (A) 73.7 %; Platelet Count 370 X 10*3/uL (140-440); RBC 4.64 X 10*6/uL (4.40-5.60); RDW 12.1 % (11.5-14.5); WBC 9.48 X 10*3/uL (4.50-10.00)
[2020-11-12 11:40] LABS: African American GFR (CKD) 105.8 (60.0-200.0); Albumin/Globulin Ratio 1.25 (1.60-3.17); Anion Gap 7.3 mmol/L (4.00-12.00); BUN/Creat Ratio 33.06 Ratio (12.00-20.00); Blood Urea Nitrogen 24.6 mg/dL (9.0-27.0); Carbon Dioxide 25.9 mmol/L (21.6-31.8); Globulin 2.4 g/dL (1.6-3.3); Non-African American GFR(CKD) 91.3 (60.0-200.0); Potassium 4.4 mmol/L (3.5-5.5); Total Bilirubin 0.6 mg/dL (0.30-1.20); Total Protein 5.4 g/dL (6.2-8.2)
--- NOTE | 2020-11-12 12:27 | P.DS ---
Providers Date of admission: 11/04/20 14:07 Expected date of discharge: 11/12/20 Attending physician: Durga Jurado MD Consults: 11/04/20 14:37 Consult Physician Routine Consulting Provider: Thom Topete Consult Reason/Comments: COVID, ARDS Do you want consulting provider notified?: Yes Primary care physician: Kathie Baig [facility] Course: # COVID 19- Pneumonia # Acute hypoxic respiratory failure Diagnosed on 10/31/2020. Received monoclonal antibodies on 11/02/20. Pulmonary medicine consulted. Pts oxygen demand peaked at 10Lpm, but currently on 5 L of oxygen; discharged home on home oxygen with pulm and PCP follow up. Treated with decadron for 8 days in the hospital, discharged with additional 2 days. Pt declinded remdesivir. Pt did have elevated D-Dimer and was started on lovenox 40mg BID; discharged with Eliquis 2.5mg BID for DVT PPx for an additional 22 days for total 30 day course. Inflammatory markers improving. # History of rheumatoid arthritis -Held home Plaquenil until inflammatory markers improved, then resumed. To be continued on discharge. I spent 36 minutes coordinating this discharge. Assessment: Gen: awake, alert HEENT: normocephalic, atraumatic, good hearing acuity, moist mucous membranes Resp: good air exchange, breathing comfortably with no accessory muscle use CVS: good distal perfusion x 4, GI: soft, NTTP, ND : no SPT, no CVAT, varghese catheter not present MSK: no pitting edema, no clubbing Neuro: non-focal, moving all extremities Psych: cooperative, euthymic mood Patient Condition at Discharge: Good Plan - Discharge Summary Discharge Rx Participant: No New Discharge Prescriptions: New Dexamethasone 6 mg PO DAILY #2 tablet Apixaban [Eliquis] 2.5 mg PO BID #44 tab Continue Zinc 50 mg PO DAILY Ascorbic Acid [Vitamin C] 500 mg PO BID ondansetron HCL [Zofran] 8 mg PO Q8HR PRN PRN Reason: Nausea Folic Acid 1 mg PO DAILY Turmeric 100mg 100 mg PO BID Magnesium Oxide [Crowe] 500 mg PO DAILY Cholecalciferol (Vitamin D3) [Vitamin D3 (125 MCG = 5,000 IU)] 125 mcg PO BID Multivitamins, Thera [Multivitamin (formulary)] 1 tab PO DAILY Loratadine-Pseudoeph 5-120 mg [Claritin-D 12 Hour] 1 tab PO Q12HR PRN PRN Reason: Allergy Symptoms Albuterol Nebulized [Ventolin Nebulized] 2.5 mg INHALATION RT-QID PRN PRN Reason: Shortness Of Breath Telmisartan [Micardis] 40 mg PO HS Cyanocobalamin (Vitamin B-12) [Vitamin B-12] 2,500 mcg PO MO Ibuprofen [Motrin] 800 mg PO BID PRN PRN Reason: Pain Hydroxychloroquine Sulfate [Plaquenil] 200 mg PO BID HYDROcodone/APAP 10-325MG [[place] 10-325] 1 tab PO DAILY PRN PRN Reason: Pain Calcium 200mg 200 mg PO BID Discharge Medication List Albuterol Nebulized [Ventolin Nebulized] 2.5 mg INHALATION RT-QID PRN 11/04/20 [History] Ascorbic Acid [Vitamin C] 500 mg PO BID 11/04/20 [History] Calcium 200mg 200 mg PO BID 11/04/20 [History] Cholecalciferol (Vitamin D3) [Vitamin D3 (125 MCG = 5,000 IU)] 125 mcg PO BID 11/04/20 [History] Cyanocobalamin (Vitamin B-12) [Vitamin B-12] 2,500 mcg PO MO 11/04/20 [History] Folic Acid 1 mg PO DAILY 11/04/20 [History] HYDROcodone/APAP 10-325MG [[place] 10-325] 1 tab PO DAILY PRN 11/04/20 [History] Hydroxychloroquine Sulfate [Plaquenil] 200 mg PO BID 11/04/20 [History] Ibuprofen [Motrin] 800 mg PO BID PRN 11/04/20 [History] Loratadine-Pseudoeph 5-120 mg [Claritin-D 12 Hour] 1 tab PO Q12HR PRN 11/04/20 [History] Magnesium Oxide [Crowe] 500 mg PO DAILY 11/04/20 [History] Multivitamins, Thera [Multivitamin (formulary)] 1 tab PO DAILY 11/04/20 [History] Telmisartan [Micardis] 40 mg PO HS 11/04/20 [History] Turmeric 100mg 100 mg PO BID 11/04/20 [History] Zinc 50 mg PO DAILY 11/04/20 [History] ondansetron HCL [Zofran] 8 mg PO Q8HR PRN 11/04/20 [History] Apixaban [Eliquis] 2.5 mg PO BID #44 tab 11/12/20 [Rx] Dexamethasone 6 mg PO DAILY #2 tablet 11/12/20 [Rx] Follow up Appointment(s)/Referral(s): Kathie Guajardo MD [Primary Care Provider] - 11/13/20 9:30 am Patient Instructions/Handouts: Coronavirus Disease 2019 (COVID-19), Using Oxygen at Home (DC)
== END 2020-11-12 13:01 | disposition home or self-care (01) | DRG 177 ==
LOC: EC 11:38 → 4SSUR 14:07
PROVIDERS: ADMIT Internal Medicine; ATTEND Internal Medicine
PROC: 3E0F7SF Introduction of Other Gas into Respiratory Tract, Via Natural or Artificial Opening (ICD-10-PCS; principal; 2020-11-02)
DX: U07.1 COVID-19 (principal); J80 Acute respiratory distress syndrome; J12.82 Pneumonia due to coronavirus disease 2019; M06.9 Rheumatoid arthritis, unspecified; M19.011 Primary osteoarthritis, right shoulder; R00.0 Tachycardia, unspecified; I10 Essential (primary) hypertension; D72.810 Lymphocytopenia; M19.90 Unspecified osteoarthritis, unspecified site; Z79.01 Long term (current) use of anticoagulants; Z79.899 Other long term (current) drug therapy; Z90.49 Acquired absence of other specified parts of digestive tract; Z87.19 Personal history of other diseases of the digestive system; Z96.653 Presence of artificial knee joint, bilateral
CPT/HCPCS: 36415; 71045; 71046; 80053; 82728; 83605; 83615; 83735; 84145; 84484; 85025; 85379; 85610; 85730; 86140; 93005; 94640; 94760; 99285

== ENCOUNTER → 2020-12-17 | Outpatient (CLI) | payer MEDICARE, OTHER ==
--- NOTE | 2020-12-18 08:34 | CT ---
EXAMINATION TYPE: CT chest wo con DATE OF EXAM: 12/17/2020 COMPARISON: Chest x-ray November 30, 2020 and older studies through November 02, 2020 HISTORY: ARDS, Hx Covid CT DLP: 1163.70 mGycm. Automated Exposure Control for Dose Reduction was Utilized. TECHNIQUE: CT scan of the thorax is performed without IV contrast. High-resolution protocol with 1 m m sequences obtained in supine and prone technique. FINDINGS: LUNGS: Moderate to severe linear parenchymal fibrotic changes are redemonstrated bilaterally in the p eriphery of the lungs extending from apex to base. Some areas of slightly more nodular thickening or nodular consolidation are present for reference left lung base 1.4 cm area axial image 19 series 8 pe rsists on both images. Similar finding noted left lung apex axial image 5 series 8. They appear to be encasing or surrounding smaller peripheral bronchi. No pleural effusion or pneumothorax seen bilater ally. Tracheobronchial tree is patent. MEDIASTINUM: Lack of IV contrast and technique are noted to limit evaluation for mediastinal and johanna cially hilar adenopathy. There are no definitive greater than 1 cm mediastinal lymph nodes. No card iomegaly or pericardial effusion is seen. Moderate Coronary artery calcifications are present which i s noted marker for underlying coronary artery disease. Ascending aorta measures up to 4.[address] axial image 11. OTHER: Cholecystectomy clips are seen. There is 3.6 cm low dense lesion posterior right hepatic lobe axial image 27 series 7. Multilevel spurring in the spine is present. IMPRESSION: Bilateral moderate to severe peripheral parenchymal fibrotic changes now present. Areas o f nodularity favor more thickened nodular scarring, true pulmonary nodules less likely but not exclud ed. Consider diagnostic contrast-enhanced chest CT or PET/CT to exclude occult malignancy on backgrou nd chronic changes.
== END | disposition home or self-care (01) ==
LOC: RADCTMAIN 16:19
PROVIDERS: ATTEND Internal Medicine Critical Care Medicine
DX: J84.10 Pulmonary fibrosis, unspecified (principal); R91.8 Other nonspecific abnormal finding of lung field
CPT/HCPCS: 71250

== ENCOUNTER 2023-06-03 11:02 | Day surgery (SDC) | payer MEDICARE, OTHER ==
[2023-06-01 10:37] VITALS: BMI 33.0
[~2023-06-03 11:02] MED LIST: ATROPINE SULFATE 0.4 MG/ML 1 ML VIAL IM ONE; LACTATED RINGERS 1,000 ML IV SCH; LIDOCAINE 1% (10MG/ML) FOR IV START INTRADERMA PRN
[2023-06-03] MEDS: LACTATED RINGERS 1,000 ML IV SCH (11:37)
[2023-06-03 11:44] VITALS: RESP 16; TEMP 97.1
[2023-06-03] MEDS ORDERED: KETAMINE HCL IN 0.9 % NACL 50 MG/5 ML SYRINGE ONE (11:59)
[2023-06-03] MEDS ORDERED: fentaNYL (PF) 50 MCG/ML 2 ML AMP ONE (11:59)
[2023-06-03] MEDS ORDERED: MIDAZOLAM 2 MG/2 ML VIAL ONE (11:59)
[2023-06-03] MEDS ORDERED: PROPOFOL 10 MG/ML 20 ML VIAL IV ONE (11:59)
[2023-06-03] MEDS ORDERED: LIDOCAINE 1% INJ 10MG/ML (20 ML MDV) ONE (11:59)
[2023-06-03] MEDS: LIDOCAINE 2% INJ 20 MG/ML INTRATRACH ONE (12:12)
--- NOTE | 2023-06-03 13:08 | PCN ---
PROCEDURE NOTE PROCEDURES PERFORMED: Bronchoscopy, airway examination, therapeutic lavage, BAL right middle lobe. PREOPERATIVE DIAGNOSES: Chronic bronchitis, retained secretions, purulent tracheobronchitis. POSTOPERATIVE DIAGNOSIS: Chronic bronchitis, retained secretions, purulent tracheobronchitis. There was informed consent and universal timeout. The patient's procedure took place in room [facility]. WILDERNESS GUIDE: Dr. Topete. FIRST TAX AUDIT MANAGER: Felicita Nguyen. ANESTHESIA: Provided general anesthesia. Again, the6re was informed consent and universal timeout. DESCRIPTION OF PROCEDURE: After the patient was adequately sedated and being fully monitored, the bronchoscope was inserted through the right nostril. It passed through the right nasopharynx into the oropharynx. The hypopharynx was identified and topicalized. The hypopharyngeal structures, including anterior commissure, true cords, false cords, piriform sinuses, right and left, arytenoids, epiglottis, vallecula, all appeared relatively normal. There were some secretions noted in the hypopharynx. They were suctioned. The glottic opening was topicalized with lidocaine. The bronchoscope was pushed through the glottic opening into the trachea. The trachea itself appeared relatively normal. There were some secretions noted, particularly in the mid to distal trachea. Tracheal mellisa was sharp. The right and left mainstem were topicalized. The right upper lobe and its 3 segments, right middle lobe and its 2 segments, right lower lobe and its 5 segments, the lingula and its 2 segments, the left upper lobe proper and its 2 segments, and the left lower lobe and its 4 segments, were all found to be similar in that there was diffuse airway erythema and hyperemia. There were thick secretions noted throughout. They were suctioned with saline lavage. There was no dominant mass or tumor. There was some vascular permeability and some mucosal friability. The bronchoscope was then wedged into the right middle lobe. A formal BAL took place. A 30 mL of turbid fluid was recovered, it will be sent to the laboratory for analysis. Additional secretions throughout the airways were suctioned with the aid of saline lavage, and then the bronchoscope was withdrawn. The patient will be recovered. There was no immediate complication. MMODL / IJN: [id number] /
[2023-06-03 13:10] VITALS: BP 122/78; PULSE 75
== END 2023-06-03 12:50 | disposition home or self-care (01) ==
LOC: ORWHC2ENDO 11:02
PROVIDERS: ATTEND Internal Medicine Critical Care Medicine
DX: J44.1 Chronic obstructive pulmonary disease with (acute) exacerbation (principal); J80 Acute respiratory distress syndrome; M19.90 Unspecified osteoarthritis, unspecified site; U07.1 COVID-19; J12.82 Pneumonia due to coronavirus disease 2019; J84.10 Pulmonary fibrosis, unspecified; M06.9 Rheumatoid arthritis, unspecified; I10 Essential (primary) hypertension; Z79.51 Long term (current) use of inhaled steroids; Z79.899 Other long term (current) drug therapy; Z98.890 Other specified postprocedural states; Z82.49 Family history of ischemic heart disease and other diseases of the circulatory system; Z90.49 Acquired absence of other specified parts of digestive tract
CPT/HCPCS: 88108; 88305; 31624; J2001 ×2; J2250; J3010; J2704